=== PATIENT | female | born 1950 | race Caucasian/White ===

== ENCOUNTER 2019-05-09 00:58 | Outpatient (CLI) | payer MEDICARE, BC, SELFPAY ==
--- NOTE | 2019-05-09 09:53 | DI.MRI_ITS ---
SYMPTOMS/DIAGNOSIS: PERIPHERAL POLYNEUROPATHY, G62.9, LUMBAR SPONDYLOSIS, NERVE RADIOFREQUENCY ABLATION THERAPY ON 02/2019, BURNING PAIN RIGHT LOWER EXTREMITY, ? PROGRESSION OF CENTRAL VERSUS FORAMINAL STENOSIS LUMBOSACRAL SPINE MRI: MRI examination of the lumbosacral spine was performed according to the usual protocol. Current examination is compared with most recent MR of 08/02/2016. Peridiscal vertebral signal changes again noted at multiple levels along with multiple fatty rests. Bilateral L5 spondylolysis with associated spondylolisthesis, the spondylolisthesis has increased mildly since the previous examination and now comprises approximately 15% of the vertebral width. There is moderate bilateral neural foraminal narrowing, slightly worse in comparison with the previous examination. There is moderate central canal spinal stenosis, slightly increased since the previous examination. No focal disc herniation. At L4-5, there is moderate to severe central canal spinal stenosis with a moderate disc bulge. No gross interval change from previous examination. At L3-4, there is moderate central canal spinal stenosis and a disc bulge, no gross interval change from the previous examination. At L2-3, there is mild central canal spinal stenosis, no gross interval change from the previous study. At L1-2, there is a moderate disc bulge. No significant change. Conus medullaris appears intact. CONCLUSION: Multilevel central canal spinal stenosis as described above. Interval increase in severity of central canal spinal stenosis at L5-S1 since examination of July 2016. Mild interval increase in bilateral neural foraminal narrowing also noted since the previous examination. No other significant change.
== END 2019-05-09 01:18 ==
PROVIDERS: PCP Specialist/Technologist Athletic Trainer; Visit Provider Internal Medicine
DX: M48.07 Spinal stenosis, lumbosacral region (principal); M43.09 Spondylolysis, multiple sites in spine; M43.16 Spondylolisthesis, lumbar region; G62.9 Polyneuropathy, unspecified; M51.26 Other intervertebral disc displacement, lumbar region
CPT/HCPCS: 72148

== ENCOUNTER 2019-05-23 10:19 | Outpatient (REF) | payer MEDICARE, BC, SELFPAY ==
[2019-05-23 23:03] LABS: Anion Gap 10.5 mmol/L (3-11); BUN 18 mg/dL (7-18); CO2 26.5 mmol/L (21.0-32.0); CREATININE 0.76 mg/dL (0.55-1.02); Calcium 8.7 mg/dL (8.5-10.1); Calculated LDL 181 mg/dL; Chloride 105 mmol/L (98-107); Cholesterol 262 mg/dL (50-200); Glucose 98 mg/dL (70-100); HDL Cholesterol 70 mg/dL (40-60); Magnesium 1.8 mg/dL (1.8-2.4); Potassium 4.8 mmol/L (3.5-5.1); Sodium 142 mmol/L (136-145); Triglyceride 58 mg/dL (30-150); Vitamin B12 668 pg/mL (193-986)
[2019-05-23 23:51] LABS: FREE T4 0.88 ng/dL (0.76-1.46); TSH 2.82 uIU/mL (0.36-3.74)
[2019-05-25 13:12] LABS: Total Protein 6.4 g/dl (6.3-8.2)
== END 2019-05-23 10:39 ==
LOC: NCHCN 10:19
PROVIDERS: PCP Specialist/Technologist Athletic Trainer; Visit Provider Nurse Practitioner Family
DX: E78.5 Hyperlipidemia, unspecified (principal); M48.00 Spinal stenosis, site unspecified
CPT/HCPCS: 80048; 80061; 83721; 82607; 83735; 84165; 84439; 84443

== ENCOUNTER 2019-05-29 00:33 | Outpatient (CLI) | payer MEDICARE, BC, SELFPAY ==
--- NOTE | 2019-05-29 10:57 | DI.RAD_ITS ---
SYMPTOMS/DIAGNOSIS: NECK PAIN, M54.2 CERVICAL SPINE: Odontoid, AP, lateral and bilateral oblique views of the cervical spine were obtained. The odontoid is intact. The lateral masses are well aligned. There is normal alignment of the cervical spine. There is disc space narrowing from C 4 - 5 through C 6 - 7. Endplate osteophytes are also seen through these levels. There degenerative changes of the facets throughout the cervical spine. There is mild narrowing of the neural foramen on the right at C 4 - 5 and 5-6 and left at C 4 - 5 and 5 - 6. No acute fracture or subluxation is seen. The prevertebral soft tissues are unremarkable. IMPRESSION: Moderately severe degenerative changes in the cervical spine.
== END 2019-05-29 00:53 ==
PROVIDERS: PCP Specialist/Technologist Athletic Trainer; Visit Provider Nurse Practitioner Family
DX: M54.2 Cervicalgia (principal); M47.812 Spondylosis without myelopathy or radiculopathy, cervical region; M50.321 Other cervical disc degeneration at C4-C5 level; M50.322 Other cervical disc degeneration at C5-C6 level
CPT/HCPCS: 72050

== ENCOUNTER 2020-03-21 20:57 | Outpatient (REF) | payer MEDICARE, BC, SELFPAY | END 2020-03-21 21:17 | LOC: NCHCN 20:57 | PROVIDERS: PCP Specialist/Technologist Athletic Trainer; Visit Provider Family Medicine | DX: N39.0 Urinary tract infection, site not specified (principal) | CPT/HCPCS: 87077; 87086; 87186 ==

== ENCOUNTER 2020-03-27 18:16 | Outpatient (REF) | payer MEDICARE, BC, SELFPAY | END 2020-03-27 18:36 | LOC: NCHCN 18:16 | PROVIDERS: PCP Specialist/Technologist Athletic Trainer; Visit Provider Family Medicine | DX: N39.0 Urinary tract infection, site not specified (principal) | CPT/HCPCS: 87086 ==

== ENCOUNTER 2020-05-27 11:58 | Outpatient (REF) | payer MEDICARE, BC, SELFPAY ==
--- NOTE | 2020-05-27 12:00 | PAPFT_PTH ---
PATIENT: Sharon Buchanan LOC: [facility] U#:[id number] AGE/SX: 70/F ROOM: RE05/27/[address]: Zenobia Cota : 1950 BED: DIS: 05/27/2020 SPEC #: [id number] RECD: 05/28/20 12:56 STATUS: ORACIO RESumi #: [id number] MARILIA: 05/27/20 12:[address]: Zenobia Cota DEPT: [facility] Cytology RECD BY: Juhi Felix ENTERED: 05/28/20 12:57 SP TYPE: PAPFT OTHR DR: Jerel Santiago Tissues: 1 - CX/ENDOCX FOR PAP SMEARS Procedures: PAP THIN PREP/UVM Screening HPV DNA PROBE Comments: [id number]
[2020-05-27 20:03] LABS: BUN 20 mg/dL (7-18); CREATININE 0.82 mg/dL (0.55-1.02); Calcium 9.1 mg/dL (8.5-10.1); Calculated LDL 155 mg/dL (<100); Chloride 103 mmol/L (98-107); Cholesterol 243 mg/dL (<200); Glucose 102 mg/dL (74-106); HDL Cholesterol 74 mg/dL (40-60); Magnesium 1.7 mg/dL (1.8-2.4); Potassium 4.4 mmol/L (3.5-5.1); Sodium 138 mmol/L (136-145); TSH 1.74 uIU/mL (0.36-3.74); Triglyceride 70 mg/dL (<150)
== END 2020-05-27 12:18 ==
LOC: NCHCN 11:58
PROVIDERS: PCP Specialist/Technologist Athletic Trainer; Visit Provider Nurse Practitioner Family
DX: E78.5 Hyperlipidemia, unspecified (principal); R94.6 Abnormal results of thyroid function studies; Z11.51 Encounter for screening for human papillomavirus (HPV)
CPT/HCPCS: 80048; 80061; 88142; 83735; 84443; 87624

== ENCOUNTER 2020-11-05 18:22 | Outpatient (REF) | payer MEDICARE, BC, SELFPAY ==
[2020-11-05 18:43] LABS: ALT 27 U/L (14-59); AST 19 U/L (15-37); HDL Cholesterol 78 mg/dL (40-60); LDL CHOLESTEROL 98 mg/dL (<100)
[2020-11-05 19:09] LABS: Creatine Kinase 139 U/L (26-192)
== END 2020-11-05 18:42 ==
LOC: NCHCN 18:22
PROVIDERS: PCP Nurse Practitioner Family; Visit Provider Nurse Practitioner Family
DX: E78.5 Hyperlipidemia, unspecified (principal)
CPT/HCPCS: 82550; 83721; 83718; 84450; 84460

== ENCOUNTER 2020-12-30 01:38 | Outpatient (CLI) | payer MEDICARE, BC, SELFPAY ==
--- NOTE | 2020-12-30 | DI.US_ITS ---
EXAM: US RENAL CLINICAL HISTORY: FREQUENT UTI'S,N39.0 TECHNIQUE: Ultrasound performed using standard protocol. COMPARISON: US SOFT TISSUE UPPER/LOWER EXT US {[id number]} from 02/11/2015 FINDINGS: Renal ultrasound was performed according to the usual protocol. The kidneys are normal in size and s hape and there is no evidence of a renal mass, hydronephrosis, or nephrolithiasis. Ureteral jets are noted in the urinary bladder bilaterally. Urinary bladder is unremarkable in appea chung with pre and postvoid volumes 142 cc and 9 cc respectively. IMPRESSION: Negative renal ultrasound. DATA REPOSITORY:
== END 2020-12-30 01:58 ==
PROVIDERS: PCP Nurse Practitioner Family; Visit Provider Urology
DX: N39.0 Urinary tract infection, site not specified (principal); Z87.440 Personal history of urinary (tract) infections
CPT/HCPCS: 76770

== ENCOUNTER 2021-05-13 11:40 | Outpatient (REF) | payer MEDICARE, BC, SELFPAY ==
[2021-05-13 19:58] LABS: HGB 13.2 g/dL (11.2-15.7); MCH 30.9 pg (27.0-33.0); MCV 93.7 fL (80-95); MPV 9.7 fL (8.0-11.0); Platelet Count 304 10^3/uL (130-400); RBC 4.27 10^6/uL (3.93-5.22); RDW-SD 41.8 fL; WBC 8.41 10^3/uL (4.4-10.8)
[2021-05-13 20:14] LABS: Hemoglobin A1C 5.3 % (<5.7)
[2021-05-13 20:31] LABS: Anion Gap 8.9 mmol/L (3-11); BUN 25 mg/dL (7-18); CO2 27.1 mmol/L (21.0-32.0); CREATININE 0.8 mg/dL (0.55-1.02); Calcium 9.1 mg/dL (8.5-10.1); Chloride 103 mmol/L (98-107); Glucose 102 mg/dL (74-106); Magnesium 1.9 mg/dL (1.8-2.4); Potassium 4.4 mmol/L (3.5-5.1); Sodium 139 mmol/L (136-145); TSH 1.96 uIU/mL (0.36-3.74)
== END 2021-05-13 11:41 | disposition home or self-care (01) ==
LOC: NCHCN 11:40
PROVIDERS: PCP Nurse Practitioner Family; Visit Provider Nurse Practitioner Family
DX: R94.6 Abnormal results of thyroid function studies (principal); R55 Syncope and collapse; F41.8 Other specified anxiety disorders; M79.672 Pain in left foot; M25.512 Pain in left shoulder
CPT/HCPCS: 80048; 85027; 83036; 83735; 84439; 84443

== ENCOUNTER 2021-05-18 11:33 | Outpatient (CLI) | payer MEDICARE, BC, SELFPAY ==
--- NOTE | 2021-06-18 14:10 | W.CARDEVENT ---
Date of service: 06/18/21 Time of Service: 14:10 Cardiac Event Recorder Referring Provider:: Ruben Indications:: A Cardiac Event Note: There is a 30-day monitor order for indication of syncope. ?The patient was in normal sinus rhythm for the majority the recording with an average heart rate of 57 bpm. ?There are no episodes of atrial fibrillation, no pauses greater than 3 seconds noted high degree heart block. ?There were no serious or critical events recorded. ?There were 4 patient triggered events associated with sinus bradycardia.
== END 2021-05-18 11:34 | disposition home or self-care (01) ==
PROVIDERS: PCP Nurse Practitioner Family; Visit Provider Nurse Practitioner Family
DX: R55 Syncope and collapse (principal)
CPT/HCPCS: 93270

== ENCOUNTER 2021-06-03 02:07 | Outpatient (CLI) | payer MEDICARE, BC, SELFPAY ==
--- NOTE | 2021-06-03 14:57 | DI.US_ITS ---
APPROVED REPORT EXAM: Comprehensive 2D, Doppler, and color-flow Echocardiogram Patient Location: Out-Patient Piggyback Clerk: Deedee Bean RDCS (AE) Indications: Syncope Other Information Study Quality: Adequate Conclusion Left Ventricle : The left ventricle is normal size. The left ventricular systolic function is normal. The left ventricular ejection fraction is within the normal range. There is normal left ventricular wall thickness. There is normal LV segmental wall motion. Diastolic function is indeterminate. LVEF i s 57%. Right Ventricle : The right ventricle is normal size. The right ventricular systolic function is norm al. The RVSP is 20.1mmHg. Atria : The left atrium size is normal. The right atrium size is normal. Mitral Valve : Mild mitral annular calcification. Mild mitral regurgitation. No evidence of mitral va lve stenosis. Great Vessels : The aortic root is normal in size. The ascending aorta is moderately dilated. Aortic arch is normal in caliber. IVC is normal in size and collapses >50% with inspiration. Please see remainder of study for further details. Wall motion Left Ventricle The left ventricle is normal size. The left ventricular systolic function is normal. The left ventric ular ejection fraction is within the normal range. There is normal left ventricular wall thickness. T here is normal LV segmental wall motion. Diastolic function is indeterminate. There is no ventricular septal defect visualized. LVEF is 57%. Right Ventricle The right ventricle is normal size. The right ventricular systolic function is normal. The RVSP is 20 .1mmHg. Atria The left atrium size is normal. The right atrium size is normal. The interatrial septum is intact wit h no evidence for an atrial septal defect. Aortic Valve The aortic valve is normal in structure. Aortic valve is trileaflet. There is no aortic valvular sten osis. No aortic regurgitation is present. Mitral Valve Mild mitral annular calcification. No evidence of mitral valve stenosis. Mild mitral regurgitation. Tricuspid Valve The tricuspid valve is normal in structure. There is no tricuspid valve stenosis. Trace to mild tricu spid regurgitation. Pulmonic Valve The pulmonary valve is normal in structure. There is no pulmonic valvular stenosis. Trace pulmonic re gurgitation. Great Vessels The aortic root is normal in size. The ascending aorta is moderately dilated. Aortic arch is normal i n caliber. IVC is normal in size and collapses >50% with inspiration. Pericardium There is no pericardial effusion. 2D Dimensions IVSD d PLAX 0.96 cm F: 0.6-1.0 LV Vol A2C d MOD 101.7 mL LVPW d PLAX 1.03 cm F: 0.6 - 1.0 LV Vol A4C d MOD 105.3 mL LVID d PLAX 4.11 cm F: 3.8 - 5.2 LA vol/ BSA A2C s A-L 31.0 mL/m2 LVDs 2.95 cm F: 2.2 - 3.5 LA vol/ BSA A4C s A-L 29.2 mL/m2 Ao Root d 2.71 cm F: 2.7 - 3.3 LA Vol/ BSA Biplane s A-L 31.0 mL/m2 RA Area A4C 14.75 cm2 LA Area A4C s MOD 18.88 cm2 RA Vol/ BSA A4C s A-L 22.0 mL/m2 LA Area A2C s MOD 18.92 cm2 Ao Asc Diam d 3.81 cm F: 2.3 - 3.1 LV EF A4C MOD 57.2 % LV EF Teichholz 54.5 % LV EF A2C MOD 56.8 % LVEF (Miner's) 57.03 % F: 54 - 74 LV EF Biplane MOD 57.0 % LV Volume 80.34 mL F: 46 - 106 SV 59.28 mL LV Volume Index 43.90 mL/m2 F: 29 - 61 SV Index 32.35 mL/m2 LV Vol Biplane MOD 103.9 mL FS 27.90 % M-Mode TAPSE 2.17 cm (M/F) >1.7 LV Diastology MV E' medial 0.051 (>0.07 m/s) E/A Ratio 1.0 LV E/e MED 14.45 (<14) MV E Vmax 0.74 (0.4-1.3 m/s) MV E' lateral 0.075 (>0.1 m/s) MV A Vmax 0.75 (0.4-1.3 m/s) LV E/e LAT 9.90 (<14) MV E/A Ratio 0.96 MV E/E' medial 14.49 MV E/E' lateral 9.92 Aortic Valve LVOT Area 3.40 cm2 AoV Area Vmax 2.32 cm2 LVOT Vmax 0.92 m/s AoV Area/ BSA (Vmax) 1.26 cm2/m2 LVOT Mean Carlos Alberto. 0.62 m/s JIMY Mean Carlos Alberto. 2.42 cm2 LVOT Peak Grad 3.4 mmHg JIMY Mean Carlos Alberto. Index 1.32 cm2/m2 LVOT Mean Grad 1.7 mmHg LVOT VTI 0.216 m LVOT Diam s 2.05 cm AoV Vmax 1.35 m/s Velocity Ratio 0.68 AoV Mean Carlos Alberto. 0.86 m/s AoV Peak Grad 7.3 mmHg LVOT SV 73.30 mL AoV Mean Grad 3.5 mmHg AoV VTI 0.265 m AoV Area VTI 2.76 cm2 AoV Area/ BSA (VTI) 1.51 cm/m2 Mitral Valve MV DT 160 (160-240 msec) MR Vmax 4.28 m/s MV PHT 46 msec MR VTI 1.719 m MV Area PHT 4.76 cm2 MR Peak Grad 73.2 mmHg MV VTI 0.296 m MR Mean Grad 56.5 mmHg MV VTI Annulus 0.292 m MR PISA Radius 0.55 cm MV Area VTI 2.45 (4.0-6.0 cm2) MR EROA 0.15 cm2 MR Aliasing Velocity 0.35 m/s MR PISA 1.88 cm2 Pulmonary Valve PV Vmax 0.85 (0.5-1.5 m/s) RVOT Peak Gr. 1.10 mmHg PV Peak Grad 2.9 mmHg RVOT Mean Gr. 0.55 mmHg PV Mean Grad 1.5 mmHg RVOT VTI 0.136 m PV VTI 0.209 m RVOT Vmax 0.52 m/s Tricuspid Valve TR Peak Grad 17.1 mmHg TR Vmax 2.07 m/s RA Pressure 3.00 mmHg RVSP (TR) 20.1 mmHg
== END 2021-06-03 02:27 ==
PROVIDERS: PCP Nurse Practitioner Family; Visit Provider Nurse Practitioner Family
DX: R55 Syncope and collapse (principal); I34.0 Nonrheumatic mitral (valve) insufficiency; I77.810 Thoracic aortic ectasia
CPT/HCPCS: 93306

== ENCOUNTER 2021-06-18 14:10 | Outpatient (CLI) | payer MEDICARE, BC, SELFPAY | END 2021-06-18 14:11 | LOC: CARDO 06-19 09:16 | PROVIDERS: PCP Nurse Practitioner Family; Referring Provider Nurse Practitioner Family; Visit Provider Internal Medicine Cardiovascular Disease | DX: R55 Syncope and collapse (principal); R00.2 Palpitations | CPT/HCPCS: 93272 ==

== ENCOUNTER 2021-07-17 08:49 | Outpatient (CLI) | payer MEDICARE, BC, SELFPAY ==
--- NOTE | 2021-07-17 08:45 | RT.EKG_ITS ---
APPROVED REPORT Exam: Resting ECG Reason for Exam: bradycardia Patient Location: O HR:54 bpm ECG Measurements Heart Rate 54 AXIS MN 294 P 32 QRSd 82 QRS 13 QT 434 T 38 QTc 412 Conclusion Sinus rhythm...normal P axis, V-rate 50- 99 First Degree AV Block
== END 2021-07-17 08:50 | disposition home or self-care (01) ==
LOC: DI.CARD 08:58
PROVIDERS: PCP Nurse Practitioner Family; Referring Provider Nurse Practitioner Family; Visit Provider Internal Medicine Cardiovascular Disease
DX: R00.1 Bradycardia, unspecified (principal)
CPT/HCPCS: 93010

== ENCOUNTER → 2021-07-17 08:49 | Outpatient (BNVA) | payer MEDICARE, BC, SELFPAY | PROVIDERS: PCP Nurse Practitioner Family; Referring Provider Nurse Practitioner Family; Visit Provider Internal Medicine Cardiovascular Disease | DX: R00.1 Bradycardia, unspecified (principal) | CPT/HCPCS: 93005; 99203 ==

== ENCOUNTER 2021-08-04 01:10 | Outpatient (CLI) | payer MEDICARE, BC, SELFPAY ==
--- NOTE | 2021-08-04 14:45 | DI.RAD_ITS ---
Exam(s) XR SHOULDER LT COMPLETE 2+V XR HUMERUS LT EXAM: XR SHOULDER LT COMPLETE 2+V and XR humerus LT CLINICAL HISTORY: LT SHOULDER PAIN, M25.512,H/O TRAUMA,? PLATE AND SCREWS INTACT,COMPARE TO. TECHNIQUE: 2D digital imaging was performed of the left shoulder and humerus. Seven images were obt ained. AP, Grashey, Y-view and axillary views of the shoulder and AP and lateral views of the left h umerus were obtained. COMPARISON: CR XR HUMERUS LT from 08/04/2021 CR XR HUMERUS LT from 08/04/2021 FINDINGS: BONES: No acute fracture is present. No bony destructive lesion is seen. There is an old healed left proximal humeral fracture with sideplate and screws present. Well corticated osseous densities are s een around the glenohumeral joint consistent with old injury. There are old healed left rib fracture s. The distal humerus is unremarkable. JOINTS: No dislocation present. Moderately severe degenerative changes of the left glenohumeral joint are noted with joint space narrowing, subchondral sclerosis and periarticular spurring. SOFT TISSUE: Normal. IMPRESSION: 1. No acute abnormality. 2. Posttraumatic and postsurgical changes in the shoulder. 3. Moderately severe degenerative changes of the glenohumeral joint. DATA REPOSITORY: RADIATION DOSE DELIVERED:
== END 2021-08-04 01:30 ==
PROVIDERS: PCP Nurse Practitioner Family; Visit Provider Nurse Practitioner Family
DX: M25.512 Pain in left shoulder (principal); M19.012 Primary osteoarthritis, left shoulder
CPT/HCPCS: 73030; 73060

== ENCOUNTER 2021-11-23 13:44 | Outpatient (REF) | payer MEDICARE, BC, SELFPAY ==
[2021-11-23 13:02] LABS: ALT 30 U/L (14-59); AST 24 U/L (15-37); Calculated LDL 103 mg/dL (<100); Cholesterol 204 mg/dL (<200); HDL Cholesterol 91 mg/dL (40-60); Triglyceride 53 mg/dL (<150)
[2021-11-23 13:16] LABS: Creatine Kinase 118 U/L (26-192)
== END 2021-11-23 13:45 | disposition home or self-care (01) ==
LOC: NCHCN 13:44
PROVIDERS: PCP Nurse Practitioner Family; Visit Provider Nurse Practitioner Family
DX: E78.5 Hyperlipidemia, unspecified (principal)
CPT/HCPCS: 80061; 82550; 84450; 84460

== ENCOUNTER 2022-02-04 10:02 | Outpatient (CLI) | payer MEDICARE, BC, SELFPAY ==
--- NOTE | 2022-02-04 06:00 | DI.RAD_ITS ---
Exam(s) XR PAIN CLINIC LUMBAR SP 2V EXAM: XR PAIN CLINIC LUMBAR SP 2V CLINICAL HISTORY: Dx: Lumbar Spondylosis TECHNIQUE: 2D and realtime digital imaging was performed. CONTRAST MATERIAL: Refer to procedure report. COMPARISON: No exams were available for comparison FINDINGS: Fluoroscopy was provided for Dr. Jiang during the performance of a lumbar medial branch block. Doyle schofield refer to the procedure report for complete details. Ka,r=8.33 mGy IMPRESSION:
[2022-02-04 10:14] VITALS: BP 124/66; PULSE 68; RESP 18; TEMP 36.6; O2SAT 97
--- NOTE | 2022-02-04 10:55 | PDOC.PAIN_ITS ---
Pain Clinic Procedure Note Procedure Note Procedure Note: Lumbar/Sacral Medial Branch Blocks - Confirmatory Sharon Buchanan has been referred to the [facility] for lumbar/sacral medial branch blocks. COMMENTS: I previously evaluated her in the clinic. Her pre-procedure pain VAS as 7/10. Dx: Lumbosacral spondylosis without myelopathy Patient was interviewed and the medical record reviewed. There were no medical, pharmacologic, radiographic or other structural contraindications to attempting fluoroscopically guided local anesthetic lumbar/sacral medial branch blocks. Risks and expected side effects as well as potential benefit of the procedure were reviewed and voiced concerns addressed. The printed consent form was signed and witnessed. Standard time-out procedure was performed. Patient was placed in the prone position on the fluoroscopy table and automated blood pressure cuff and pulse oximeter applied. The skin entry points for approaching the anatomic target points of the segmental medial branches of bilateral l3-L5DR were identified with anfluoroscopy and marked. Following thorough Chlorhexadine preparation of the skin and draping and 1% lidocaine infiltration of the skin entry points and subcutaneous tissues, a 25 gauge 3.5 spinal needle was placed under fluoroscopic guidance down on to the target point for each respective segmental medial branch.Position was confirmed in A/P, oblique and lateral views with 0.25ml of omnipaque 240. At this point I injected 0.5ml of 0.5% Bupivacaine at each segmental sensory nerve. Vital signs were stable throughout the procedure and were as recorded in the docflowsheet by the nursing staff. Follow up plans and appointments were discussed and was instructed to keep careful note of how the usual pain was modified by these injections. Specifically was asked to keep a pain diary for the next 24 hours using a numeric pain scale of 0-10 and report these results at the follow-up visit. Post procedure instruction was given as documented in the nursing documentation and having met discharge criteria. Patient was discharged from the [facility]. Based on the medial branches blocked today, if the patient has adequate relief and we are able to proceed to radiofrequency ablation, the treatment should result in the denervation of the bilateral L4-L5 and L5-S1 FACET JOINTS. We would expect to denervate a total of 4 facets during the radiofrequency ablation. COMMENTS: Post-procedure pain VAS = 5/10. Justus Jiang DO, MPH [facility]Pain Management [facility] CC: Zenobia Cota
[2022-02-04] MEDS: Omnipaque 240 MG/ML 50 ML BTL IJ (11:05)
[2022-02-04] MEDS: Bupivacaine 0.5% Pres-Free 10 ML VIAL IJ (11:05)
[2022-02-04 11:06] VITALS: BP 129/72; PULSE 67; RESP 16; O2SAT 95
== END 2022-02-04 10:03 | disposition home or self-care (01) ==
LOC: PC 10:02
PROVIDERS: PCP Nurse Practitioner Family; Visit Provider Preventive Medicine Occupational Medicine
DX: M47.817 Spondylosis without myelopathy or radiculopathy, lumbosacral region (principal)
CPT/HCPCS: 64493; 64494; 72100; Q9967

== ENCOUNTER 2022-03-04 07:59 | Outpatient (CLI) | payer MEDICARE, BC, SELFPAY ==
--- NOTE | 2022-03-04 06:00 | DI.RAD_ITS ---
Exam(s) XR PAIN CLINIC LUMBAR SP 2V EXAM: XR PAIN CLINIC LUMBAR SP 2V CLINICAL HISTORY: lumbar spondylosis TECHNIQUE: 2D and realtime digital imaging was performed. COMPARISON: No exams were available for comparison FINDINGS: C-arm fluoroscopy was utilized by Dr. Jiang during reported radiofrequency ablation. Hard copy shows needle placement bilaterally at what appear to be the L3-4, L4-5, and L5-S1 levels. IMPRESSION: RADIATION DOSE DELIVERED: anibal Rodriguez=17.06 mGy
[2022-03-04 08:10] VITALS: BP 114/63; PULSE 68; RESP 20; TEMP 36.4; O2SAT 97
[2022-03-04] MEDS: fentaNYL 100 MCG/2 ML VIAL IVP ×2 (08:45→08:55)
[2022-03-04] MEDS: Midazolam 2 MG/2 ML VIAL IVP (08:46)
[2022-03-04 09:18] VITALS: BP 119/69; PULSE 60; RESP 18; O2SAT 96
--- NOTE | 2022-03-04 09:23 | PDOC.PAIN_ITS ---
Pain Clinic Procedure Note Procedure Note Procedure Note: Bilateral Lumbar Radiofrequency with Coolief Machine PROCEDURE NOTE Date of Service: March 04, 2022 Patient: Sharon Buchanan Provider: Justus Jiang DO, MPH Pre Operative Diagnosis: Lumbosacral Spondylosis without Myelopathy Post Operative Diagnosis: Same Pre procedure pain; VAS= 7/10 PROCEDURE: Radiofrequency Ablation of medial branches - Bilateral L3 L4 L5 and lateral branches of bilateral S1. Sharon Buchanan was brought into the fluoroscopy suite and positioned into the prone position on the fluoroscopy table and allowed to adjust to a position of comfort. A grounding pad was placed on the right thigh. The lumbar region was widely prepped with a chloraprep solution, allowed to air dry and draped in standard sterile surgical fashion. Local anesthesia was provided by 5 mL of 2% Lidocaine delivered with a 25g needle. A 17g 100 mm radiofrequency introducer needle was placed to the planned anatomic targets guided with intermittent fluoroscopy with a perpendicular approach to terminally place at the junction of the superior articular process and the transverse process of the bilateral L4 L5, the base of the sacral ala on the bilateral for the L5 medial branch nerve and the area between base of the sacral ala to the S1 foramen bilaterally. The stylets were removed and radiofrequency probes with a 4mm active tip were then inserted. Needle tip position of the probes was verified in the AP, oblique, and lateral views. At each site, the medial branch nerve was stimulated at 2 Hz to a maximum 1-2 volts determined to finalize safe needle and electrode placement. The patient was awake and responsive during this portion of the procedure. Each target was anesthetized with 1-2 mL of 2% Lidocaine for anesthesia for lesioning and then each target was lesioned at 80 degrees Celsius for 2 minutes and 30 seconds. Tissue imped ences were noted to be between 250 and 500 Ohms. Electrodes and needles were then removed and bandages placed over the needle placement sites, the patient then returned to the supine position on a stretcher and transported to the recovery room without hemodynamic, neurologic, or allergic reactions. Fluoroscopic images were printed for hard copy recording and digitally archived. POST PROCEDURE EVALUATION: IMPRESSION: 1. Summary of procedure. Medication given is documented in the MAR. 2. The patient will be contacted in 1-3 weeks 3. Estimated Blood Loss: <5 mls 4. Fluoroscopy time: Documented in the EMR. Follow up plans and appointments were discussed with the Sharon . Post procedure instruction was given as documented in nursing documentation and having met discharge criteria, Sharon was discharged from the [facility]. COMMENTS: No apparent complications. Post-procedure pain: VAS= 5/10. F/U with our office as needed. I personally performed this entire procedure. Justus Jiang DO, MPH Attending Physician Pain Management
[2022-03-04] MEDS: Bupivacaine 0.5% Pres-Free 10 ML VIAL IJ (09:36)
[2022-03-04] MEDS: methylPREDNISolone ACETATE 40 MG/ML VIAL IJ (09:37)
[2022-03-04] MEDS: Lidocaine 2% Pres-Free 5 ML VIAL IJ (09:40)
== END 2022-03-04 08:00 | disposition home or self-care (01) ==
LOC: PC 08:00
PROVIDERS: PCP Nurse Practitioner Family; Visit Provider Preventive Medicine Occupational Medicine
DX: M47.817 Spondylosis without myelopathy or radiculopathy, lumbosacral region (principal)
CPT/HCPCS: 64635; 64636; 72100; J1030; J2250; J3010

== ENCOUNTER 2022-06-11 15:40 | Emergency (ER) | payer MEDICARE, BC, SELFPAY ==
[2022-06-11 15:44] VITALS: BP 120/103; PULSE 59; RESP 18; TEMP 36.4; O2SAT 98
--- NOTE | 2022-06-11 15:45 | DI.RAD_ITS ---
Exam(s) XR HAND RT COMPLETE EXAM: XR HAND RT COMPLETE CLINICAL HISTORY: wound from bolt, base of thumb. TECHNIQUE: 2D digital imaging was performed. Three views. COMPARISON: No exams were available for comparison FINDINGS: BONES: No acute fracture is present. No bony destructive lesion is seen. JOINTS: No dislocation present. Degenerative changes are noted throughout, greatest at the 1st carp al metacarpal joint. SOFT TISSUE: Normal. No radiopaque foreign body. IMPRESSION: Degenerative changes. No acute abnormality. DATA REPOSITORY: RADIATION DOSE DELIVERED:
--- NOTE | 2022-06-11 15:54 | W.ED.GENAD ---
Discharge Plan Disposition Patient Disposition: HOME Condition: Stable Discharge Details Clinical Impression: Open wound of right hand Primary Care Provider: Zenobia Cota ED Provider: Gold Swanson Home Meds and New Rx's Prescriptions: New cephalexin 500 mg capsule 500 mg PO QID 10 Days Qty: 40 0RF Continued coenzyme Q10 [CoQ-10] 100 mg capsule 100 mg PO DAILY Premarin 0.625 mg/gram cream 0.3125 mg vaginal .weekly Rx Instructions: off 5 days; repeat cycle tizanidine 4 mg tablet 4 mg PO Q8H PRN calcium carbonate [Calcium 600] 600 mg calcium (1,500 mg) tablet 600 mg PO DAILY folic acid 0.4 MG tablet 0.4 mg PO DAILY cyanocobalamin (vitamin B-12) 2,500 MCG tablet 2,500 mcg PO DAILY estradiol [Estrace] 42.5 GM cream 1 gm VG 2x/wk Qty: 1 0RF atorvastatin 10 mg tablet 10 mg PO DAILY levothyroxine 25 mcg tablet 50 mcg PO DAILY ascorbate calcium (vitamin C) 500 mg tablet 1.5 g PO DAILY meloxicam 15 mg tablet 15 mg PO DAILY magnesium 250 mg tablet 500 mg PO DAILY trazodone 100 mg tablet 150 mg PO HS Label Comments: 07/08/15- pt states she is allowed to take up to 150mg at hs if necessary. HM cholecalciferol (vitamin D3) 1,000 UNIT capsule 2 tab PO DAILY multivitamin 1 EACH capsule 1 ea PO DAILY pregabalin 50 mg capsule 50 mg PO DAILY Label Comments: TAKE 1 CAPSULE BY MOUTH TWICE A DAY. tramadol 50 mg Tablet 50 mg PO BID PRN Discharge Instructions Instructions: Abrasion (ED) Additional Instructions: Keep the wound clean and dry, change antibiotic dressing daily. Rest, elevate, cool and/or warm compresses every 2 hours for 20 minutes. Please watch for new or worsening symptoms and return to the ER for any concerns. No evidence of infection now but I have provided you a prescription of Keflex in the case she developed warmth, redness, signs of infections over the next 24-48 hours you may fill over the weekend. Otherwise please contact your primary care provider on Tuesday to discuss your ER visit and need for outpatient reevaluation. Medical Decision Making 72-year-old female [id number] injured her right hand on a metal bolt yesterday evening. Was seen at the urgent care and given a updated tetanus booster. Sent to the ER for full evaluation. Clinically she appears well, nontoxic, neurologically intact. Plan is to obtain x-ray to rule out bony involvement or foreign body. Will thoroughly clean and appropriately dress Wound was thoroughly cleaned and dressed with antibiotic ointment. X-ray does not reveal bony abnormality or foreign body, there are degenerative changes present. Patient reports previous severe hand injury requiring surgery and she is concerned of infection. No signs of infection now. Recommend topical antibiotic ointment and I will provide a prescription for Keflex that she can fill over the next 24 to 48 hours if symptoms were to worsen. Standard discharge and return precautions were provided. Patient understands, is agreeable to this plan, and has no additional questions or concerns upon discharge. This documentation was generated using Youtopia[employer] system, please disregard any oddities of phrase or misspellings. Medical Records Medical records reviewed: Yes I reviewed the patient's medical records. Imaging Data Radiologic Study: Attestation: I personally reviewed and interpreted this imaging study as follows: Imaging: X-Ray Radiologist's impression: Exam(s) XR HAND RT COMPLETE EXAM: XR HAND RT COMPLETE CLINICAL HISTORY: wound from bolt, base of thumb. TECHNIQUE: 2D digital imaging was performed. Three views. COMPARISON: No exams were available for comparison FINDINGS: BONES: No acute fracture is present. No bony destructive lesion is seen. JOINTS: No dislocation present. Degenerative changes are noted throughout, greatest at the 1st carpal metacarpal joint. SOFT TISSUE: Normal. No radiopaque foreign body. IMPRESSION: Degenerative changes. No acute abnormality. HPI General Mode of arrival: ambulatory. Date/Time Provider Initiated Documentation: 06/11/22 15:49. Limitations to Documentation: no limitations. Information obtained by: patient. History of Present Illness 72 year old F presents to the emergency department with the chief complaint of R hand wound, described as moderate, with intensity rated at 4. Quality is described as aching, and is localized to the right and upper extremity. Patient reports no radiation. Patient started experiencing this day(s) (1) and it has been constant. Immobilization improves symptom(s), Movement worsens symptoms . Patient notes no other symptoms.. Patient did receive the following treatments prior to arrival, none Related Data Home Medications Medication Instructions Recorded Confirmed cholecalciferol (vitamin D3) 25 2 tab PO DAILY 02/26/15 06/11/22 mcg (1,000 unit) capsule multivitamin 1 ea PO DAILY 07/28/16 03/04/22 cyanocobalamin (vitamin B-12) 2,500 mcg PO DAILY 09/02/17 03/04/22 2,500 mcg tablet folic acid 400 mcg tablet 0.4 mg PO DAILY 09/02/17 03/04/22 estradiol 0.01% (0.1 mg/gram) 1 gm vaginal 2x/wk #1 tube 09/09/17 03/04/22 vaginal cream (Estrace) ascorbate calcium (vitamin C) 500 1.5 g PO DAILY 06/26/21 03/04/22 mg tablet atorvastatin 10 mg tablet 10 mg PO DAILY 06/26/21 06/11/22 levothyroxine 25 mcg tablet 50 mcg PO DAILY 06/26/21 06/11/22 magnesium 250 mg tablet 500 mg PO DAILY 06/26/21 06/11/22 meloxicam 15 mg tablet 15 mg PO DAILY 06/26/21 03/04/22 coenzyme Q10 100 mg capsule 100 mg PO DAILY 07/17/21 03/04/22 (CoQ-10) calcium carbonate 600 mg calcium 600 mg PO DAILY 11/16/21 06/11/22 (1,500 mg) tablet (Calcium) conjugated estrogens 0.625 mg/gram 0.3125 mg vaginal .weekly 11/16/21 06/11/22 vaginal cream (Premarin) tizanidine 4 mg tablet 4 mg PO Q8H PRN 11/16/21 06/11/22 trazodone 100 mg tablet 150 mg PO HS 11/16/21 06/11/22 tramadol 50 mg tablet 50 mg PO BID PRN 02/04/22 06/11/22 cephalexin 500 mg capsule 500 mg PO QID 10 days #40 caps 06/11/22 pregabalin 50 mg capsule 50 mg PO DAILY 06/11/22 06/11/22 Previous Rx's Medication Instructions Recorded estradiol 0.01% (0.1 mg/gram) 1 gm vaginal 2x/wk #1 tube 09/09/17 vaginal cream (Estrace) cephalexin 500 mg capsule 500 mg PO QID 10 days #40 caps 06/11/22 Allergies Allergy/AdvReac Type Severity Reaction Status Date / Time gabapentin Allergy Intermediate rash Verified 06/11/22 15:48 hydrocodone bitartrate Allergy Intermediate Hives Verified 06/11/22 15:48 [From Vicodin] tramadol Allergy Intermediate Hives Verified 07/17/21 09:10 General Stated Complaint: Laceration KARIME: 4 Review of Systems Constitutional Constitutional: Denies fever(s) Musculoskeletal Musculoskeletal: Reports arthralgias, Denies numbness, Reports stiffness and Denies tingling Integumentary/Breasts Skin/Breast: Denies erythema Neurologic Neurologic: Denies numbness and Denies tingling PFSH All Active Problems (Updated 06/11/22 @ 17:21 by LOLI Solomon) Open wound of right hand (Acute) Lumbosacral spondylosis without myelopathy (Acute) DJD (degenerative joint disease) (Chronic) severe back issues RH Hyperlipidemia, unspecified (Acute) Bipolar disorder, unspecified (Acute) Obsessive-compulsive disorder, unspecified (Acute) PTSD (post-traumatic stress disorder) (Acute) Osteopenia (Acute) Syncope and collapse (Acute) Bradycardia (Acute) Lumbar stenosis (Acute) Lumbosacral spondylosis without myelopathy (Acute) Neurogenic claudication due to lumbar spinal stenosis (Acute) Medical History Abnormal thyroid stimulating hormone (TSH) level 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) Basal cell carcinoma Bilateral calf pain Bitten or stung by nonvenomous insect and other nonvenomous arthropods, initial encounter Chronic low back pain Constipation Diverticulitis Hemorrhoids Left foot pain Left shoulder pain Lumbar radiculopathy Neck pain Paresthesia of bilateral legs Sacral foraminal stenosis Situational anxiety Sleep disturbance Spinal stenosis Sprain and strain of other specified sites of shoulder and upper arm Toe pain Tremor Ulnar neuropathy Urinary frequency Vaginitis Surgical History Fracture, Open Treatment plate L arm R ankle fx R wrist fracture Tendon Transplant or Transfer R hand Social History Smoking/Tobacco Use Status: Never Smoking risk assessment performed?: Yes Alcohol Intake: current Alcohol Intake frequency: holidays/special occasions only Drug use: Occasionally Substance use type: marijuana Do you feel safe at home: Yes Do you feel safe in your relationship?: Yes Exam Const General: cooperative, healthy appearing, comfortable and no acute distress Orientation: alert and awake [facility] Head: normal to inspection, normocephalic and atraumatic Eyes Conjunctivae: conjunctivae normal Neck Neck: normal visual inspection, trachea midline and supple Resp Effort & Inspection: normal respiratory effort and able to speak in complete sentences Cardio Rate: regular rate Rhythm: regular rhythm Skin General skin exam: no rashes or lesions noted Neuro General: patient alert, patient awake, moves all extremities and no focal motor deficits Cognition: normal cognition Speech: speech normal Gait: normal gait Motor: muscle tone normal throughout Sensory Exam: no sensory deficits noted Extrem General: full ROM and capillary refill normal Hand/finger images: 1. Superficial abrasion-shallow looking wound. No bleeding or foreign body. Mild discomfort to palpation. No deformity, erythema or warmth. There is no drainage. Neuro, vascular, tendon intact. Psych Appearance: grossly normal Mental Status: mental status grossly normal Course Vital Signs Vital signs: Vital Signs Temperature 36.4 C L 06/11/22 15:44 Pulse 59 L 06/11/22 15:44 Respiratory Rate 18 06/11/22 15:44 Blood Pressure 120/103 H 06/11/22 15:44 Pulse Oximetry 98 06/11/22 15:44 Temperature 36.4 C L 06/11/22 15:44 Temperature Source Temporal Artery Scan 06/11/22 15:44 Pulse 59 L 06/11/22 15:44 Respiratory Rate 18 06/11/22 15:44 Respiratory Effort Non-Labored 06/11/22 15:49 Blood Pressure 120/103 H 06/11/22 15:44 Blood Pressure Position Sitting 06/11/22 15:44 Pulse Oximetry 98 06/11/22 15:44 Oxygen Delivery Method Room Air 06/11/22 15:44 Oxygen Flow Rate 0 06/11/22 15:44 PAWSS Have you Been Recently Intoxicated or Drunk Within the Last 30 days?: No Have you Ever Experienced Previous Episodes of Alcohol Withdrawal?: No Have you ever Experienced Withdrawal Seizures?: No Have you ever Experienced Delirium Tremens(DT)s?: No Have you ever undergone Alcohol Rehabilitation Treatment (i.e, inpt ot outpatient treatment programs)?: No Have you ever Experienced Blackouts?: No Have you ever Combined Alcohol with other Downers within the last 90 days?: No Have you ever Combined Alcohol with any other Substance of Abuse during the last 90 days?: No Positive Blood Alcohol level on Presentation? [PCS.BAL]: No Evidence of Increased Autonomic Activity (i.e. HR>120, tremor, sweating, agitation, nausea)?: No Result: 0
== END 2022-06-11 18:15 | disposition home or self-care (01) ==
PROVIDERS: Emergency Provider Physician Assistant; PCP Nurse Practitioner Family
DX: S61.401A Unspecified open wound of right hand, initial encounter (principal); W22.8XXA Striking against or struck by other objects, initial encounter
CPT/HCPCS: 99283; 73130; 99284

== ENCOUNTER 2022-07-26 13:13 | Outpatient (REF) | payer MEDICARE, BC, SELFPAY ==
[2022-07-26 17:02] LABS: ALT 29 U/L (14-59); AST 26 U/L (15-37); Creatine Kinase 105 U/L (26-192); HDL Cholesterol 89 mg/dL (40-60); LDL CHOLESTEROL 102 mg/dL (<100); TSH 1.82 uIU/mL (0.36-3.74)
[2022-07-26 17:19] LABS: FREE T4 0.99 ng/dL (0.76-1.46)
[2022-07-30 16:29] LABS: O-desmethyltramadol 10603 ng/mL (Cutoff:25); Tramadol 11967 ng/mL (Cutoff:25)
== END 2022-07-26 13:14 | disposition home or self-care (01) ==
LOC: NCHCN 13:13
PROVIDERS: PCP Nurse Practitioner Family; Visit Provider Nurse Practitioner Family
DX: E78.5 Hyperlipidemia, unspecified (principal); R94.6 Abnormal results of thyroid function studies; M48.061 Spinal stenosis, lumbar region without neurogenic claudication
CPT/HCPCS: 80373; 82550; 83721; 83718; 84439; 84443; 84450; 84460

== ENCOUNTER → 2022-08-04 01:25 | Outpatient (CLI) | payer MEDICARE, BC, SELFPAY ==
--- NOTE | 2022-08-04 10:00 | DI.RAD_ITS ---
Exam(s) XR CHEST 2V PA LATERAL EXAM: XR CHEST 2V PA LATERAL CLINICAL HISTORY: SOB, R06.02; COUGH AT NIGHTTIME TECHNIQUE: 2D digital imaging was performed. COMPARISON: No exams were available for comparison FINDINGS: HEART: Normal size. Aorta: Mildly tortuous. Not dilated. PULMONARY VASCULATURE: Normal. LUNGS: Clear. PLEURAL SPACE: No pleural effusion or pneumothorax. BONE:Unremarkable for age. Hardware left proximal humerus. IMPRESSION: No acute abnormality. DATA REPOSITORY: RADIATION DOSE DELIVERED:
--- NOTE | 2022-08-04 10:00 | DI.RAD_ITS ---
Exam(s) XR HIP PELVIS ADULT BL EXAM: XR HIP PELVIS ADULT BL CLINICAL HISTORY: LT HIP JT PAIN, M25.552. TECHNIQUE: 2D digital imaging was performed. Five views. COMPARISON: No exams were available for comparison FINDINGS: BONES: No acute fracture is present. No bony destructive lesion is seen. Mild enthesophytes from the iliac crests. Enthesophytes are also noted at the iliac wings. There is severe narrowing of the L4-5 and L5-S1 disc spaces. JOINTS: No dislocation present. Hip joint spaces are well maintained. Mild bilateral acetabular spur ring. SI joints show mild degenerative changes. SOFT TISSUE: Soft tissue calcifications in upper right thigh. IMPRESSION: Mild degenerative changes of both hips. DATA REPOSITORY: RADIATION DOSE DELIVERED:
== END ==
PROVIDERS: PCP Nurse Practitioner Family; Visit Provider Nurse Practitioner Family
DX: M25.552 Pain in left hip (principal); M16.0 Bilateral primary osteoarthritis of hip; M53.3 Sacrococcygeal disorders, not elsewhere classified; R05.8 Other specified cough; R06.02 Shortness of breath
CPT/HCPCS: 73521; 71046

== ENCOUNTER 2022-10-07 01:49 | Outpatient (CLI) | payer MEDICARE, BC, SELFPAY ==
[2022-10-07] MEDS: Albuterol HFA 18 GM 200 PUFF INH IH (12:10)
[2022-10-07] MEDS: Methacholine 100 MG VIAL IH (12:10)
[2022-10-07] MEDS: Inhaler, Assist Device 1 EACH MC (12:11)
--- NOTE | 2022-10-08 13:43 | W.PFT ---
Date of service: 10/07/22 Time of Service: 10:08 Pulmonary Function Test Result Requesting Provider Zenobia Cota Indications: Dyspnea Interpretation Spirometry: There is no baseline airflow limitation. There was a decreased of 33% in FEV1% with administration of 4.0mg/mL methacholine. Impression Positive methacholine challenge test. Clinical Correlation therefore is recommended.
--- NOTE | 2022-10-08 13:45 | W.PFT ---
Date of service: 10/07/22 Time of Service: 10:08 Pulmonary Function Test Result Requesting Provider Zenobia Cota Indications: Dyspnea Interpretation Spirometry: There is no airflow limitation Lung Volumes: Normal lung volumes Diffusion Capacity: Normal diffusion Airway Pressure: Normal airways resistance Impression Normal pulmonary function test Clinical Correlation therefore is recommended.
== END 2022-10-07 01:50 | disposition home or self-care (01) ==
LOC: RT 01:49
PROVIDERS: PCP Nurse Practitioner Family; Visit Provider Nurse Practitioner Family
DX: R06.02 Shortness of breath (principal); R06.09 Other forms of dyspnea; R94.2 Abnormal results of pulmonary function studies
CPT/HCPCS: 94060; 94070; 94726; 94729; 94010; J7674

== ENCOUNTER 2022-11-26 00:41 | Outpatient (CLI) | payer MEDICARE, BC, SELFPAY ==
--- NOTE | 2022-11-26 | DI.CT_ITS ---
Exam(s) CT CHEST HIGH RESOLUTION EXAM: CT CHEST HIGH RESOLUTION CLINICAL HISTORY: SOB, R06.02,? INTERSTITIAL LUNG DISEASE,H/O OCCUP EXPOSURE TO PAINT VAPORS,. TECHNIQUE: Imaging protocol: Axial computed tomography images were obtained and coronal and sagittal reformatted images were created and reviewed. High-resolution images were also obtained. COMPARISON: CR XR CHEST 2V PA LATERAL from 08/04/2022 FINDINGS: Tracheobronchial tree: Patent where visualized. Pulmonary parenchyma: No consolidation or dominant measurable mass. No architectural distortion. Ther e is no evidence of interstitial disease. No cystic changes are seen in the lungs. There is no evid ence of bronchiectasis. Mediastinum and Laura: No dominant adenopathy or fluid collection. The esophagus is unremarkable. Thyroid gland: Unremarkable. Pleura: No effusion or pneumothorax. Heart: The heart is not dilated. Mild coronary artery calcification is present. No pericardial effus ion. Aorta: Thoracic aorta non-dilated. Atherosclerosis is present. Upper abdomen: Unremarkable. Lymph nodes: Within normal limits. Soft tissues: Unremarkable. Bones:Within normal limits for the patient's age. There are marked degenerative changes seen in the left glenohumeral joint. There are old healed rib fractures. IMPRESSION: 1. No acute pulmonary process. 2. No evidence of interstitial disease. No bronchiectasis is present. RADIATION DOSE DELIVERED: 512.7mGy.cm Total DLP 512.7mGy.cm Total DLP DATA REPOSITORY: All CT scans at this facility are submitted to the National Radiology Data Registry (NRDR) Dose Index Registry (DIR) with the [employer] (ACR). RADIATION OPTIMIZATION: All CT scans at this facility use at least one of these dose optimization te chniques: automated exposure control; mA and/or kV adjustment per patient size (includes targeted exa ms where dose is matched to clinical indication); or iterative reconstruction.
== END 2022-11-26 01:01 ==
LOC: DI 00:42
PROVIDERS: PCP Nurse Practitioner Family; Visit Provider Nurse Practitioner Family
DX: R06.02 Shortness of breath (principal); Z57.5 Occupational exposure to toxic agents in other industries
CPT/HCPCS: 71250

== ENCOUNTER 2022-12-20 14:14 | Outpatient (REF) | payer MEDICARE, BC, SELFPAY ==
[2022-12-20 16:54] LABS: Anion Gap 8.8 mmol/L (3-11); BUN 15 mg/dL (7-18); CO2 27.2 mmol/L (21.0-32.0); CREATININE 0.8 mg/dL (0.55-1.02); Calcium 9.4 mg/dL (8.5-10.1); Chloride 104 mmol/L (98-107); Estimated GFR 77.75 (mL/min/1.73m2); Glucose 109 mg/dL (74-106); Potassium 4.3 mmol/L (3.5-5.1); Sodium 140 mmol/L (136-145)
== END 2022-12-20 14:15 | disposition home or self-care (01) ==
LOC: NCHCN 14:14
PROVIDERS: PCP Nurse Practitioner Family; Visit Provider Nurse Practitioner Family
DX: E78.5 Hyperlipidemia, unspecified (principal); Z79.899 Other long term (current) drug therapy
CPT/HCPCS: 80048

== ENCOUNTER 2023-03-03 08:43 | Outpatient (CLI) | payer MEDICARE, BC, SELFPAY ==
--- NOTE | 2023-03-03 06:00 | DI.RAD_ITS ---
Exam(s) XR PAIN CLINIC LUMBAR SP 2V EXAM: XR PAIN CLINIC LUMBAR SP 2V CLINICAL HISTORY: DX: Lumbar Spondylosis TECHNIQUE: 2D and realtime digital imaging was performed. CONTRAST MATERIAL: Refer to procedure report. COMPARISON: No exams were available for comparison FINDINGS: Fluoroscopy was provided for Dr. Jiang during the performance of a lumbar radiofrequency ablation. P lease refer to the procedure report for complete details. Ka,r=21.4 mGy IMPRESSION:
[2023-03-03 09:02] VITALS: BP 117/68; PULSE 65; RESP 20; TEMP 36.6; O2SAT 98
[2023-03-03] MEDS: fentaNYL 100 MCG/2 ML VIAL IVP ×3 (09:31→09:46)
[2023-03-03] MEDS: Lactated Ringers 500 ML 80 ML IV (09:32)
[2023-03-03] MEDS: Midazolam 2 MG/2 ML VIAL IVP (09:32)
[2023-03-03 10:15] VITALS: BP 103/61; PULSE 67; RESP 16; O2SAT 96
--- NOTE | 2023-03-03 10:17 | PDOC.PAIN ---
Date of service: 03/03/23 Time of Service: 10:30 Pain Managment Procedure Note Procedure Note Procedure Note: Bilateral Lumbar Radiofrequency with A[employer] Machine PROCEDURE NOTE Date of Service: March 03, 2023 Patient: Sharon Buchanan Provider: Justus Jiang DO, MPH Pre Operative Diagnosis: Lumbosacral Spondylosis without Myelopathy Post Operative Diagnosis: Same Post procedure pain; VAS= 8/10 Comments: She last had this on 03/04/22 and had >50% pain relief through September of 2022. PROCEDURE: Radiofrequency Ablation of medial branches - Bilateral L3 L4 L5 and lateral branches of bilateral S1. Sharon Buchanan was brought into the fluoroscopy suite and positioned into the prone position on the fluoroscopy table and allowed to adjust to a position of comfort. A grounding pad was placed on the left abdomen. The lumbar region was widely prepped with a chloraprep solution, allowed to air dry and draped in standard sterile surgical fashion. Local anesthesia was provided by 4 mL of 2% Lidocaine delivered with a 25g needle. A 17g 100 mm radiofrequency introducer needle was placed to the planned anatomic targets guided with intermittent fluoroscopy with a perpendicular approach to terminally place at the junction of the superior articular process and the transverse process of the bilateral L4, L5, the base of the sacral ala on the bilateral for the L5 medial branch nerve and the area between base of the sacral ala to the S1 foramen bilaterally. The stylets were removed and radiofrequency probes with a 4mm active tip were then inserted. Needle tip position of the probes was verified in the AP, oblique, and lateral views. At each site, the medial branch nerve was stimulated at 2 Hz to a maximum 1-2 volts determined to finalize safe needle and electrode placement. The patient was awake and responsive during this portion of the procedure. Each target was anesthetized with 1-2 mL of 2% Lidocaine for anesthesia for lesioning and then each target was lesioned at 80 degrees Celsius for 2 minutes and 30 seconds. Tissue impedences were noted to be between 250 and 500 Ohms. I then injected 1/4 cc of Depomedrol (40 mg/cc) followed by 1 cc of 0.5% Bupivacaine at each segmental sensory nerve. Electrodes and needles were then removed and bandages placed over the needle placement sites, the patient then returned to the supine position on a stretcher and transported to the recovery room without hemodynamic, neurologic, or allergic reactions. Fluoroscopic images were printed for hard copy recording and digitally archived. POST PROCEDURE EVALUATION: IMPRESSION: 1. Summary of procedure. Medication given is documented in the MAR. 2. The patient will be contacted in 1-3 weeks 3. Estimated Blood Loss: <5 mls 4. Fluoroscopy time: Documented in the EMR. Follow up plans and appointments were discussed with the Sharon . Post procedure instruction was given as documented in nursing documentation and having met discharge criteria, Sharon was discharged from the [facility]. COMMENTS: No apparent complications. Post-procedure pain: VAS= 4/10. This procedure can be repeated if she achieves at least 6 months of at least 50% pain and/or functional improvement with this procedure. Justus Jiang DO, MPH [facility]-Pain Management [facility]
[2023-03-03] MEDS: methylPREDNISolone ACETATE 40 MG/ML VIAL IJ (10:20)
[2023-03-03] MEDS: Lidocaine 2% Pres-Free 5 ML VIAL IJ (10:21)
[2023-03-03] MEDS: Bupivacaine 0.5% Pres-Free 10 ML VIAL IJ (10:21)
== END 2023-03-03 08:44 | disposition home or self-care (01) ==
LOC: PC 08:43
PROVIDERS: PCP Nurse Practitioner Family; Visit Provider Preventive Medicine Occupational Medicine
DX: M47.817 Spondylosis without myelopathy or radiculopathy, lumbosacral region (principal); M54.50 Low back pain, unspecified
CPT/HCPCS: 64635; 64636; 72100; J1030; J2250; J3010

== ENCOUNTER 2023-04-19 11:43 | Outpatient (CLI) | payer MEDICARE, BC, SELFPAY ==
--- NOTE | 2023-04-19 | DI.MRI_ITS ---
Exam(s) MR LUMBAR SPINE WO EXAM: MR LUMBAR SPINE WO CLINICAL HISTORY: LUMBAR SPONDYLOSIS, M47.816; SACRAL FORAMINAL STENOSIS, M53.88;. TECHNIQUE: Multiplanar multisequence MRI of the Lumbar spine was performed. FINDINGS: The examination is limited due to patient motion artifact. Bones: The last intervertebral disc space is designated the L5/S1 level for the numbering purpose of this examination. There is L5 spondylolysis and grade 1 spondylolisthesis of L5 on S1. Endplate deg enerative signal changes are present throughout the lumbar spine. There is a left convex curvature o f the lower lumbar spine. There is new decreased T1 and hyperintense T2 and STIR signal in the left aspect of the sacrum. There is a question of a linear hypointense signal paralleling the sacroiliac joint in the left sacral ala suspicious for a fracture. Cord: The conus tip ends at the L1 level. It is of normal size and signal intensity. T12-L1: No disc herniations or bulges are present. No central spinal canal or neural foraminal stenos is. L1-2: There is a diffuse disc bulge. There is mild central spinal canal stenosis. No significant ri ght neural foraminal stenosis. There is mild left neural foraminal stenosis. L2-3: No disc herniations or bulges are present. No significant central spinal canal or right neural foraminal stenosis. There is moderate left neural foraminal stenosis. L3-4: There is a diffuse disc bulge. There are hypertrophic changes of the facets and ligamentum fla vum. The findings result in moderate central spinal canal stenosis. There is marked right neural fo raminal stenosis. No significant left neural foraminal stenosis. L4-5: There is a diffuse disc bulge. There are hypertrophic changes of the facets and ligamentum fla vum. These all contribute to cause moderately severe central spinal canal stenosis. There is modera te right and mild left neural foraminal stenosis. L5-S1: There are degenerative changes of the facets. This in conjunction with the spondylolisthesis causes marked central spinal canal stenosis. There is marked bilateral neural foraminal stenosis. Soft tissues: The visualized SI joints and sacrum are well maintained. The paraspinal soft tissues ar e unremarkable. IMPRESSION: 1. New abnormal signal seen in the left sacral ala with hypointense T1 and hyperintense STIR and T2 s ignal. There does appear to be a linear hypo intense line paralleling the sacroiliac joint in the le ft sacral ala suspicious for fracture. This may represent an insufficiency fracture. Metastatic dis ease should also be considered. 2. Multilevel degenerative changes resulting in central spinal canal and neural foraminal stenosis. The findings are most marked from L3-4 through L5-S1. Please see the above discussion for complete d etails. DATA REPOSITORY:
== END 2023-04-19 12:03 ==
LOC: DI 11:43
PROVIDERS: PCP Nurse Practitioner Family; Visit Provider Nurse Practitioner Family
DX: M47.816 Spondylosis without myelopathy or radiculopathy, lumbar region (principal); M53.88 Other specified dorsopathies, sacral and sacrococcygeal region
CPT/HCPCS: 72148

== ENCOUNTER → 2023-06-16 02:27 | Outpatient (CLI) | payer MEDICARE, BC, SELFPAY ==
--- NOTE | 2023-06-16 | DI.CT_ITS ---
Exam(s) CT PELVIC WO EXAM: CT PELVIC WO CLINICAL HISTORY: SACRAL DISORDER M53.3 ? FX OR METS DISEASE. TECHNIQUE: Imaging Protocol: Axial computed tomography images with coronal and sagittal reformatted images were created and reviewed CONTRAST MATERIAL: Intravenous: none Oral: None COMPARISON: MR MR LUMBAR SPINE WO from 04/19/2023 FINDING: PELVIS: OSSEOUS: There is a vertically orientated sacral insufficiency fracture in the left side of the sacru m, best seen on the coronal reconstructed images. This is parallel to the left sacroiliac joint and corresponds to the finding on the recent MRI.There are no fractures in the right-side of the sacrum. There is no evidence of significant hematoma in the pelvic musculature and no free fluid in the pelv is. There do not appear to be lytic lesions nor blastic lesions. There is degenerative anterolisthesis L5 upon S1 with approximately 1 cm anterior slippage of L5 upon S1 related to facet arthropathy. There is also advanced disc space narrowing at this level as well as at the L4-5 disc space. There is no listhesis at L4-5 level. Vacuum phenomenon is seen within isidoro th of these disc spaces. OTHER: No significant anterior abdominal hernia. No inguinal hernia. There is sigmoid diverticulosis. No evidence of obvious acute diverticulitis. The appendix is not included in the field of view of this study. There is no intrapelvic nor inguinal adenopathy. Uterus and adnexal regions are age-appropriate. IMPRESSION: 1. Left-sided sacral insufficiency fracture. This corresponds to the finding on the recent MRI scan. No significant displacement. No intra pelvic hematoma. 2. Sigmoid diverticulosis. No obvious acute diverticulitis. 3. Other findings as above. RADIATION DOSE DELIVERED: 477.85mGy.cm Total DLP DATA REPOSITORY: All CT scans at this facility are submitted to the National Radiology Data Registry (NRDR) Dose Index Registry (DIR) with the [employer] (ACR). RADIATION OPTIMIZATION: All CT scans at this facility use at least one of these dose optimization te chniques: automated exposure control; mA and/or kV adjustment per patient size (includes targeted exa ms where dose is matched to clinical indication); or iterative reconstruction.
== END ==
PROVIDERS: PCP Nurse Practitioner Family; Visit Provider Nurse Practitioner Family
DX: M53.3 Sacrococcygeal disorders, not elsewhere classified (principal); K57.30 Diverticulosis of large intestine without perforation or abscess without bleeding; M48.48XA Fatigue fracture of vertebra, sacral and sacrococcygeal region, initial encounter for fracture
CPT/HCPCS: 72192

== ENCOUNTER 2023-07-12 07:25 | Outpatient (CLI) | payer MEDICARE, BC, SELFPAY ==
[2023-07-12 07:52] VITALS: BP 108/63; PULSE 63; RESP 20; TEMP 36.4; O2SAT 97
--- NOTE | 2023-07-12 08:00 | DI.RAD_ITS ---
Exam(s) XR PAIN CLINIC FLUORO JOINT IN EXAM: XR PAIN CLINIC FLUORO JOINT IN CLINICAL HISTORY: Dx: Shoulder arthritis. TECHNIQUE: Fluoroscopy was provided for the referring physician for guidance with performing pain cl inic injection procedure. COMPARISON: No exams were available for comparison FINDINGS: Please see procedure note for details. Fluoro time: 13.0 seconds RADIATION DOSE DELIVERED: anibal Rodriguez=0.84 mGy
[2023-07-12 08:41] VITALS: BP 102/75; PULSE 58; RESP 18; O2SAT 97
--- NOTE | 2023-07-12 08:41 | PDOC.PAIN_ITS ---
Date of service: 07/12/23 Time of Service: 08:41 Pain Managment Procedure Note Procedure Note Procedure Note: PROCEDURE NOTE LEFT INTRA-ARTICULAR SHOULDER JOINT DILATION AND STEROID INJECTION Date of Service: July 12, 2023 Patient:? Sharon Buchanan? Provider:? Justus Jiang DO, MPH Sharon Buchanan has been referred to the [facility] for LEFT intra-articular shoulder joint dilation and injection. Pre-operative diagnosis: Knee Osteoarthritis Post-operative diagnosis: Same Pre-procedure pain: VAS=5/10 COMMENTS: I previously evaluated her in the office. She has left shoulder Adhesive Capsulitis Sharon?was interviewed and the medical record was reviewed.? There were no medical, pharmacologic, radiographic or other structural contraindications to attempting fluoroscopically guided LEFT intra-articular shoulder joint dilation and injection.? Risks and expected side effects as well as potential benefit of the procedure were reviewed with Sharon, and the patient's voiced concerns were addressed.? The printed consent form was signed.? Standard time-out procedure was performed. Sharon was placed in the supine position on the fluoroscopy table and the pulse oximeter was applied. The skin entry point for approaching supero- anterior aspect of the LEFT humeral head area was identified under the most advantageous fluoroscopic view and marked. Following thorough Chlorhexadine preparation of the skin and draping, 1% lidocaine infiltration of the skin entry point and subcutaneous tissues was accomplished using a 1.5 25G needle. Next, the 1.5 25G needle was advanced to the center of the superior aspect of the humeral head under fluoroscopic guidance into the LEFT shoulder joint. Intra- articular placement was confirmed by a clear arthrogram resulting from the injection of 1 ml Omnipaque 240. Next, 40 mg Depo-Medrol mixed with 5 mls of 1% Lidocaine was injected into the joint. This was followed by 18 cc of Normal Saline. The Normal Saline injection was stopped when added pressure was felt with the injection. (49 mls of Omnipaque was wasted). There was no unusual discomfort expressed by Sharon. The needle was withdrawn without difficulty. Sharon was observed and was without hemodynamic, neurologic, or allergic reactions.? Fluoroscopic images were digitally archived. Sharon's vital signs were stable throughout the procedure and were as recorded in the docflowsheet by the nursing staff. If given, dosages of intravenous drugs for anxiolysis and analgesia were documented in MAR. Follow up plans and appointments were discussed with Sharon.? Post procedure instruction was given as documented in nursing documentation and having met discharge criteria, [facility] COMMENTS: No apparent complications. Post-procedure pain: VAS= 5/10. Sharon to contact [facility] as needed. If at least 50% improvement in pain and/or function for at least 3 months is achieved, this procedure can be repeated. I personally completed the entire procedure. JUSTUS JIANG DO, MPH ABPM&R - Subspecialty board certification in Pain Medicine [facility] [facility]
[2023-07-12] MEDS: Normal Saline 20 ML VIAL 10 ML IJ (08:45)
[2023-07-12] MEDS: Omnipaque 240 MG/ML 50 ML BTL IJ (08:45)
[2023-07-12] MEDS: Lidocaine 1% Pres-Free 5 ML VIAL IJ (08:45)
[2023-07-12] MEDS: methylPREDNISolone ACETATE 40 MG/ML VIAL IJ (08:45)
== END 2023-07-12 07:26 | disposition home or self-care (01) ==
LOC: PC 07:27
PROVIDERS: PCP Nurse Practitioner Family; Visit Provider Preventive Medicine Occupational Medicine
DX: M19.011 Primary osteoarthritis, right shoulder (principal); M25.511 Pain in right shoulder
CPT/HCPCS: 20610; 77002; J1030; Q9967

== ENCOUNTER 2023-08-09 19:16 | Outpatient (REF) | payer MEDICARE, BC, SELFPAY ==
[2023-08-09 16:10] LABS: ALT 23 U/L (14-59); AST 28 U/L (15-37); Albumin 3.9 g/dL (3.4-5.0); Alkaline Phosphatase 64 U/L (46-116); BUN 14 mg/dL (7-18); Bilirubin, Total 0.4 mg/dL (0.2-1.0); CREATININE 0.7 mg/dL (0.55-1.02); Calcium 9.2 mg/dL (8.5-10.1); Chloride 101 mmol/L (98-107); Creatine Kinase 118 U/L (26-192); Glucose 104 mg/dL (74-106); HDL Cholesterol 113 mg/dL (40-60); LDL CHOLESTEROL 73 mg/dL (<100); Potassium 4.1 mmol/L (3.5-5.1); Sodium 137 mmol/L (136-145); TSH 2.33 uIU/mL (0.36-3.74); Total Protein 7.2 g/dL (6.4-8.2)
[2023-08-12 14:36] LABS: O-desmethyltramadol 27028 ng/mL (Cutoff:25); Tramadol 4798 ng/mL (Cutoff:25)
== END 2023-08-09 19:17 | disposition home or self-care (01) ==
LOC: NCHCN 19:16
PROVIDERS: PCP Nurse Practitioner Family; Visit Provider Nurse Practitioner Family
DX: E78.5 Hyperlipidemia, unspecified (principal); M47.816 Spondylosis without myelopathy or radiculopathy, lumbar region
CPT/HCPCS: 80053; 80373; 82550; 83721; 83718; 84439; 84443

== ENCOUNTER → 2023-08-17 01:31 | Outpatient (CLI) | payer MEDICARE, BC, SELFPAY ==
--- NOTE | 2023-08-17 | DI.RAD_ITS ---
Exam(s) XR HAND RT COMPLETE EXAM: XR HAND RT COMPLETE CLINICAL HISTORY: RT HAND PAIN M79.641. TECHNIQUE: 2D digital imaging was performed of the right hand. Three images were obtained. AP, late ral and oblique views were obtained. COMPARISON: CR XR HAND RT COMPLETE from 06/11/2022 FINDINGS: BONES: No acute fracture is present. No bony destructive lesion is seen. There is a subchondral cyst seen in the distal radius. JOINTS: No dislocation present. There are marked degenerative changes seen in the right hand characte rized by joint space narrowing and osteophytes. The findings are most marked at the 1st CMC joint. SOFT TISSUE: Normal. IMPRESSION: Marked degenerative changes of the right hand. DATA REPOSITORY: RADIATION DOSE DELIVERED:
== END ==
PROVIDERS: PCP Nurse Practitioner Family; Visit Provider Nurse Practitioner Family
DX: M19.041 Primary osteoarthritis, right hand (principal)
CPT/HCPCS: 73130

== ENCOUNTER 2023-11-24 09:51 | Outpatient (CLI) | payer MEDICARE, BC, SELFPAY ==
--- NOTE | 2023-11-24 06:00 | DI.RAD_ITS ---
Exam(s) XR PAIN CLINIC FLUORO JOINT IN EXAM: XR PAIN CLINIC FLUORO JOINT IN CLINICAL HISTORY: DX: Left shoulder osteoarthritis. TECHNIQUE: 2D and realtime digital imaging was performed. COMPARISON: No exams were available for comparison FINDINGS: A hard copy image shows a fixation plate in the proximal humerus. Contrast is being injected into th e glenohumeral joint Please see procedure note for details. Fluoro time: 23.1seconds RADIATION DOSE DELIVERED: anibal Rodriguez=1.85 mGy
[2023-11-24 10:14] VITALS: BP 124/70; PULSE 65; RESP 14; TEMP 36.9; O2SAT 96
[2023-11-24 10:45] VITALS: RESP 59; O2SAT 98
--- NOTE | 2023-11-24 10:47 | PDOC.PAIN_ITS ---
Date of service: 11/24/23 Time of Service: 10:47 Pain Managment Procedure Note Procedure Note Procedure Note: ?PROCEDURE NOTE ?LEFT INTRA-ARTICULAR SHOULDER JOINT DILATION AND STEROID INJECTION Date of Service: November 24, 2023 Patient:? Sharon Buchanan? Provider:? Justus Jiang DO, MPH Sharon Buchanan has been referred to the [facility] for LEFT intra-articular shoulder joint dilation and injection. Pre-operative diagnosis: Left Shoulder Osteoarthritis Post-operative diagnosis: Same Pre-procedure pain: VAS=7/10 COMMENTS:?I previously evaluated her in the office. She has left shoulder Adhesive Capsulitis. She last had this procedure in July of 2023 and had >50% pain improvement for >3 months. Sharon?was interviewed and the medical record was reviewed.? There were no medical, pharmacologic, radiographic or other structural contraindications to attempting fluoroscopically guided LEFT intra-articular shoulder joint dilation and injection.? Risks and expected side effects as well as potential benefit of the procedure were reviewed with Sharon, and the patient's voiced concerns were addressed.? The printed consent form was signed.? Standard time-out procedure was performed. Sharon was placed in the supine position on the fluoroscopy table and the pulse oximeter was applied. The skin entry point for approaching supero-anterior aspect of the LEFT humeral head area was identified under the most advantageous fluoroscopic view and marked. Following thorough Chlorhexadine preparation of the skin and draping, 1% lidocaine infiltration of the skin entry point and subcutaneous tissues was accomplished using a 1.5 25G needle. Next, the 1.5 25G needle was advanced to the center of the superior aspect of the humeral head under fluoroscopic guidance into the LEFT shoulder joint. Intra-articular placement was confirmed by a clear arthrogram resulting from the injection of 1 ml Omnipaque 240. Next, 40 mg Depo-Medrol mixed with 5 mls of 1% Lidocaine was injected into the joint. This was followed by 19 cc of Normal Saline. The Normal Saline injection was stopped when added pressure was felt with the injection. (49 mls of Omnipaque was wasted). There was no unusual discomfort expressed by Sharon. The needle was withdrawn without difficulty. Sharon was observed and was without hemodynamic, neurologic, or allergic reactions.? Fluoroscopic images were digitally archived. Sharon's vital signs were stable throughout the procedure and were as recorded in the docflowsheet by the nursing staff. If given, dosages of intravenous drugs for anxiolysis and analgesia were documented in MAR. Follow up plans and appointments were discussed with Sharon.? Post procedure instruction was given as documented in nursing documentation and having met discharge criteria, Sharon [facility] from the [facility]. COMMENTS:?No apparent complications. Post-procedure pain: VAS= 6/10. Sharon to contact [place] [facility] as needed. If at least 50% improvement in pain and/or function for at least 3 months is achieved, this procedure can be repeated. I personally completed the entire procedure. JUSTUS JIANG DO, MPH ABPM&R - Subspecialty board certification in Pain Medicine [facility] [facility]
[2023-11-24] MEDS: Nerve Block Tray 1 EACH MC (10:55)
[2023-11-24] MEDS: Lidocaine 1% Pres-Free 5 ML VIAL IJ (10:56)
[2023-11-24] MEDS: Normal Saline 20 ML VIAL 10 ML IJ (10:56)
[2023-11-24] MEDS: methylPREDNISolone ACETATE 40 MG/ML VIAL IJ (10:56)
[2023-11-24] MEDS: Omnipaque 240 MG/ML 50 ML BTL IJ (10:57)
== END 2023-11-24 09:52 | disposition home or self-care (01) ==
LOC: PC 09:53
PROVIDERS: PCP Nurse Practitioner Family; Visit Provider Preventive Medicine Occupational Medicine
DX: M19.012 Primary osteoarthritis, left shoulder (principal); M75.02 Adhesive capsulitis of left shoulder
CPT/HCPCS: 00123; 20610; 77002; J1030; J2003; Q9967

== ENCOUNTER 2023-11-29 16:24 | Outpatient (REF) | payer MEDICARE, BC, SELFPAY ==
[2023-11-29 17:15] LABS: Bacteria Rare HPF (Negative); C & S Indicated? C&S Done As Ordered; Crystals Negative HPF (Negative); Epithelial Cells Rare HPF (Negative); Mucus Negative (Negative); RBC 0-2 HPF (0-2); WBC Negative HPF (0-5)
== END 2023-11-29 16:25 | disposition home or self-care (01) ==
LOC: LBN 16:24
PROVIDERS: PCP Nurse Practitioner Family; Visit Provider Nurse Practitioner Family
DX: R30.0 Dysuria (principal)
CPT/HCPCS: 81015; 87086; 87480; 87510; 87660

== ENCOUNTER 2023-12-14 16:23 | Outpatient (REF) | payer MEDICARE, BC, SELFPAY ==
[2023-12-22 13:27] LABS: EDDP-by GC-MS None Detected ng/mL (Cutoff: 100); Methadone-by GC-MS None Detected ng/mL (Cutoff: 100)
== END 2023-12-14 16:24 | disposition home or self-care (01) ==
LOC: NCHCN 16:23
PROVIDERS: PCP Nurse Practitioner Family; Referring Provider Nurse Practitioner Family; Visit Provider Nurse Practitioner Family
DX: Z51.81 Encounter for therapeutic drug level monitoring (principal)
CPT/HCPCS: 80358

== ENCOUNTER → 2024-08-06 13:44 | Outpatient (BNVA) | payer MEDICARE, BC, SELFPAY | PROVIDERS: PCP Nurse Practitioner Family; Referring Provider Nurse Practitioner Family; Visit Provider Student in an Organized Health Care Education/Training Program | DX: M18.11 Unilateral primary osteoarthritis of first carpometacarpal joint, right hand (principal); G56.21 Lesion of ulnar nerve, right upper limb | CPT/HCPCS: 99213 ==

== ENCOUNTER 2024-08-17 01:55 | Outpatient (CLI) | payer MEDICARE, BC, SELFPAY ==
[2024-08-17 08:47] LABS: Calculated LDL 97 mg/dL (<100); Cholesterol 209 mg/dL (<200); HDL Cholesterol 105 mg/dL (40-60); Triglyceride 39 mg/dL (<150)
== END 2024-08-17 01:56 | disposition home or self-care (01) ==
LOC: LBO 01:55
PROVIDERS: PCP Nurse Practitioner Family; Visit Provider Nurse Practitioner Family
DX: E78.5 Hyperlipidemia, unspecified (principal); R94.6 Abnormal results of thyroid function studies
CPT/HCPCS: 36415; 80061; 84443

== ENCOUNTER 2024-08-22 09:54 | Emergency (ER) | payer MEDICARE, BC, SELFPAY ==
[2024-08-22 10:01] VITALS: BP 137/79; PULSE 69; RESP 17; TEMP 36.3; O2SAT 97
--- NOTE | 2024-08-22 10:15 | DI.RAD_ITS ---
Exam(s) XR RIBS LT PA CHEST 3V EXAM: XR RIBS LT PA CHEST 3V CLINICAL HISTORY: fall; L rib pain. TECHNIQUE: 2D digital imaging was performed. COMPARISON: CR XR CHEST 2V PA LATERAL from 08/04/2022 FINDINGS: Total four views Left ribs-three views: There are healed fractures of the left 3rd 4th and 5th ribs. On 1 image there is a subtle suggestion of a fracture of the 11th rib. Chest [id number]-[id number] frontal view: There is platelike atelectasis in the lower left lung field now evid ent. No lung contusion nor pleural effusion. No pneumothorax. Heart size is normal and the mediast inum is not widened or shifted. Hardware again noted in the left humerus. IMPRESSION: Subtle left 11th rib fracture. Adjacent subsegmental platelike atelectasis in the lower left lung fi eld. No pleural effusion. No pneumothorax. DATA REPOSITORY: RADIATION DOSE DELIVERED:
--- NOTE | 2024-08-22 10:16 | W.ED.GENAD ---
Discharge Plan Disposition Patient Disposition: Home Condition: Stable Discharge Details Clinical Impression: Left rib fracture Primary Care Provider: Zenobia Cota ED Provider: Harley Orlando Home Meds and New Rx's Prescriptions: Continued Premarin 0.625 mg/gram cream 0.3125 mg vaginal .weekly Rx Instructions: off 5 days; repeat cycle atorvastatin 10 mg tablet 5 mg PO DAILY omeprazole 20 mg tablet,delayed release (DR/EC) 20 mg PO DAILY tramadol 50 mg tablet 100 mg PO BID PRN (Reason: pain) Qty: 112 2RF magnesium 250 mg tablet 500 mg PO DAILY levothyroxine 50 mcg tablet 50 mcg PO DAILY Qty: 90 3RF trazodone 100 mg tablet 150 mg PO HS 90 Days Qty: 135 1RF cholecalciferol (vitamin D3) 1,000 UNIT capsule 2 tab PO DAILY pregabalin 50 mg capsule 50 mg PO DAILY Patient Comments: TAKE 1 CAPSULE BY MOUTH TWICE A DAY. montelukast 10 mg Tablet 10 mg PO DAILY Discharge Instructions Instructions: Rib Fracture or Bruised Rib ED Additional Instructions: You were seen in the emergency department for the fall last night which caused a subtle nondisplaced left rib fracture. You have no pneumothorax or popped lung. You may apply an znlh-cry-hdupqkr lidocaine patch to the area of pain for 12 hours each day, you can apply [id number]-ymm-hqhxcnv Voltaren gel which is a topical anti-inflammatory to the area of pain 2-3 times per day as needed. Please take 650 mg of Tylenol every 4-6 hours, as well as your tramadol for pain as needed. Place ice to the area and keep a large bulky blanket or pillow between your rib cage and your arm to stabilize the bone especially during coughing or sneezing or other activities that will cause significant pain. Please return to the emergency department for sharp increase in shortness of breath, developing cough or fever respiratory infection or other emergent concerns. Referrals: Zenobia Cota APRN [Primary Care Provider] - HPI General Date/Time Provider Initiated Documentation: 08/22/24 10:09. HPI Narrative: 74 year-old female presents to ED today by POV/ambulating with a chief complaint of fall last night with L posterior lower rib pain, mild SOB with deep inspiration. Quality described as sharp pain in the left posterior ribs with deep inspiration, oriented about having a collapsed lung as she has had this in the past, no radiation to cough, fever, midline back pain, head strike, LOC, palpitations as cause of fall, dizziness. Severity is described as 9. Palliating factors include nothing specific attempted, patient cannot take NSAIDs due to colitis. Provoking factors include deep breaths. Patient not anticoagulated. Related Data Home Medications ?Medication ?Instructions ?Recorded ?Confirmed cholecalciferol (vitamin D3) 25 2 tab PO DAILY 02/26/15 08/22/24 mcg (1,000 unit) capsule magnesium 250 mg tablet 500 mg PO DAILY 06/26/21 08/22/24 conjugated estrogens 0.625 mg/gram 0.3125 mg vaginal .weekly 11/16/21 08/22/24 vaginal cream (Premarin) pregabalin 50 mg capsule 50 mg PO DAILY 06/11/22 08/22/24 montelukast 10 mg tablet 10 mg PO DAILY 03/03/23 08/22/24 atorvastatin 10 mg tablet 5 mg PO DAILY 05/11/24 08/22/24 omeprazole 20 mg tablet,delayed 20 mg PO DAILY 05/11/24 08/22/24 release tramadol 50 mg tablet 100 mg (2 x 50 mg) PO BID PRN pain 05/16/24 08/22/24 #112 tabs levothyroxine 50 mcg tablet 50 mcg PO DAILY #90 tabs 06/27/24 08/22/24 trazodone 100 mg tablet 150 mg (1.5 x 100 mg) PO HS 3 06/27/24 08/22/24 months #135 tabs Previous Rx's ?Medication ?Instructions ?Recorded tramadol 50 mg tablet 100 mg (2 x 50 mg) PO BID PRN pain 05/16/24 #112 tabs levothyroxine 50 mcg tablet 50 mcg PO DAILY #90 tabs 06/27/24 trazodone 100 mg tablet 150 mg (1.5 x 100 mg) PO HS 3 06/27/24 months #135 tabs Allergies Allergy/AdvReac Type Severity Reaction Status Date / Time gabapentin Allergy Intermediate rash Verified 08/22/24 10:06 hydrocodone bitartrate (From Allergy Intermediate Hives Verified 08/22/24 10:06 Vicodin) General Stated Complaint: Orthopedic KARIME: 3 Review of Systems All systems reviewed & are unremarkable except as noted in HPI and below Exam Narrative Exam Narrative: GENERAL APPEARANCE: Well-nourished, non-toxic, awake and alert, atraumatic, no acute distress. SKIN: Warm, pink, dry, intact, without rashes/lesions/ulcerations. HEAD: Normocephalic, atraumatic, normal hair distribution for gender/age. EYES: Normal conjunctiva, no exudates on lids/lashes. ENT: Nares patent, no circumoral cyanosis, no facial swelling NECK: Supple, trachea midline, painless cervical ROM. LUNGS/CHEST: Lungs CTA bilaterally, non-labored respirations, normal A/P diameter, symmetrical expansion, no chest wall deformity, tenderness to the left posterior ribs, there is a 0.2 cm pinpoint area of ecchymosis just posterior to the mid axillary line in the lower left ribs, no midline vertebral tenderness/crepitus/step-offs, lungs CTA diffusely, no flail segment or paradoxical motion HEART (CV/PV): Regular rate and rhythm without murmur, no peripheral edema, no JVD. ABDOMEN: Soft, non-distended, no guarding. MSK: Normal ROM, no swelling/deformity to bilateral UEs or LEs, moving all extremities without weakness, no cyanosis, spine midline without tenderness, normal curvature. NEURO: Mental Status AAOx4 - alert to person, place, time, events No facial droop, no forehead involvement. Motor: No focal weakness - strength 5/5 in bilateral UEs and LEs, proximal and distal, symmetric. Sensory: sensation intact to light touch globally. Gait normal: patient ambulated without ataxia into ED room. PSYCH: euthymic, cooperative, pleasant, appropriate speech Course Vital Signs Vital signs: Vital Signs Temperature 36.3 C L 08/22/24 10:01 Pulse 69 08/22/24 10:01 Respiratory Rate 17 08/22/24 10:01 Blood Pressure 137/79 08/22/24 10:01 Pulse Oximetry 97 08/22/24 10:01 Temperature 36.3 C L 08/22/24 10:01 Pulse 69 08/22/24 10:01 Respiratory Rate 17 08/22/24 10:01 Blood Pressure 137/79 08/22/24 10:01 Blood Pressure Position Sitting 08/22/24 10:01 Pulse Oximetry 97 08/22/24 10:01 Oxygen Delivery Method Room Air 08/22/24 10:01 Oxygen Flow Rate 0 08/22/24 10:01 Pain Level 8 08/22/24 10:01 Medical Decision Making This dictation utilizes yiovx-wd-ywph dictation software and may contain unedited grammatical errors. 74 year-old female presents to ED today by POV/ambulating with a chief complaint of fall last night with L posterior lower rib pain, mild SOB with deep inspiration. Quality described as sharp pain in the left posterior ribs with deep inspiration, oriented about having a collapsed lung as she has had this in the past, no radiation to cough, fever, midline back pain, head strike, LOC, palpitations as cause of fall, dizziness. Severity is described as 9/10. Palliating factors include nothing specific attempted, patient cannot take NSAIDs due to colitis-took a tramadol today without much relief. Provoking factors include deep breaths. Patients' medical history: Endorses history of pneumothorax, spinal stenosis, lumbar radiculopathy, chronic low back pain. Family and social history: Noncontributory. Pertinent exam findings / vital signs include tenderness to the left posterior ribs, there is a 0.2 cm pinpoint area of ecchymosis just posterior to the mid axillary line in the lower left ribs, no midline vertebral tenderness/crepitus/step-offs, lungs CTA diffusely, no flail segment or paradoxical motion. Differential / pathologies of concern include rib fracture, pneumothorax, rib contusion. Diagnostic studies of: -XR L ribs with PA chest-shows isolated left 11th rib fracture. Interventions of: -Tylenol, Lidoderm patching, counseled on adding tramadol, topical Voltaren to this regimen and bracing with a large pillow as well as provided incentive spirometer to prevent pneumonia. ED Course/Assessment/Plan: 74-year-old female presents with a fall last night striking her left rib cage, has isolated subtle left 11th rib fracture that is nondisplaced, has no evidence of flail segment, no pneumothorax, was provided an incentive spirometer to her from at home prevention of pneumonia and counseled on adequate pain regimen. Counseled on strict return criteria for any fever pneumonia. Findings not consistent with pneumothorax, trauma criteria, respiratory distress. Disposition of left rib fracture. Patient verbalized understanding of the plan and return to ED criteria and engaged in shared decision making. Medical Records Medical records reviewed: Yes I reviewed the patient's medical records. Imaging Data Radiologic Study: Attestation: I personally reviewed and interpreted this imaging study as follows: Imaging: X-Ray Radiologist's impression: EXAM: XR RIBS LT PA CHEST 3V CLINICAL HISTORY: fall; L rib pain. TECHNIQUE: 2D digital imaging was performed. COMPARISON: CR XR CHEST 2V PA LATERAL from 08/04/2022 FINDINGS: Total four views Left ribs-three views: There are healed fractures of the left 3rd 4th and 5th ribs. On 1 image there is a subtle suggestion of a fracture of the 11th rib. Chest h-zud-kftfjw frontal view: There is platelike atelectasis in the lower left lung field now evident. No lung contusion nor pleural effusion. No pneumothorax. Heart size is normal and the mediastinum is not widened or shifted. Hardware again noted in the left humerus. IMPRESSION: Subtle left 11th rib fracture. Adjacent subsegmental platelike atelectasis in the lower left lung field. No pleural effusion. No pneumothorax. Lab Data Lab results reviewed: Yes I reviewed the patient's lab results. Quality:SDOH Health Related Social Needs: Health related social needs details N/A PFSH All Active Problems (Updated 08/22/24 @ 11:28 by LOLI Nicholas) Left rib fracture (Acute) Osteoarthritis of carpometacarpal joint of right thumb (Acute) Cubital tunnel syndrome on right (Acute) Sacral fracture (Acute) Chronic diarrhea (Acute) Subchondral cyst (Acute) Pain in right hand (Acute) History of COVID-19 (Acute) Pain of left hip joint (Acute) Pain, joint, shoulder, left (Acute) Screening for malignant neoplasm of breast (Acute) Thyroid function test abnormal (Acute) Paresthesia (Acute) Sleep disorder (Acute) Abnormal bone density screening (Acute) Disorder of sacrum (Acute) Low back pain (Acute) Spondylosis without myelopathy (Acute) Atrophic vaginitis (Acute) Herniation of rectum into vagina (Acute) Diverticula of intestine (Acute) First degree atrioventricular block (Acute) Polyneuropathy (Acute) Lesion of ulnar nerve (Acute) Anxiety (Chronic) Lumbosacral spondylosis without myelopathy (Acute) DJD (degenerative joint disease) (Chronic) severe back issues RH Hyperlipidemia, unspecified (Acute) Bipolar disorder, unspecified (Acute) Obsessive-compulsive disorder, unspecified (Acute) PTSD (post-traumatic stress disorder) (Acute) Osteopenia (Acute) Syncope and collapse (Acute) Bradycardia (Acute) Lumbar stenosis (Acute) Lumbosacral spondylosis without myelopathy (Acute) Neurogenic claudication due to lumbar spinal stenosis (Acute) Medical History Sebaceous cyst Benign cyst of left breast Sprain and strain of other specified sites of shoulder and upper arm Ulnar neuropathy Tremor Hemorrhoids Diverticulitis Spinal stenosis Vaginitis Toe pain Abnormal thyroid stimulating hormone (TSH) level Sleep disturbance Bilateral calf pain Neck pain Chronic low back pain Paresthesia of bilateral legs Lumbar radiculopathy Sacral foraminal stenosis Urinary frequency Constipation Bitten or stung by nonvenomous insect and other nonvenomous arthropods, initial encounter Situational anxiety Left foot pain Left shoulder pain 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) Basal cell carcinoma Surgical History Hx of oral surgery 2013 H/O colonoscopy 2013 [facility] [place] Transplant or Transfer R hand R wrist fracture R ankle fx Fracture, Open Treatment plate L arm Family History Father , at 81 Scleroderma Raynauds syndrome Stroke Hypertension Prostate cancer Mother Scleroderma Sister Hypothyroid Cardiomegaly Son ADD (attention deficit disorder) Bipolar 1 disorder Son , Drowned 1998 age 26 No problems noted. Maternal Grandmother Breast cancer Paternal Uncle Diabetes Social History Smoking/Tobacco Use Status: Never Second Hand Exposure: Yes Smoking risk assessment performed?: Yes Alcohol Intake: current Alcohol Intake frequency: a few times a month Drug use: Occasionally Substance use type: marijuana Details: Marijuana 1-2 times weekly. Last taken yesterday, edible. Adopted: No Caregiver/Support person: No Foster care: No Household members: significant other Housing: house Number of Children: 3 number of grandchildren: 8 Communication Needs: None Education Level: college Details: [employer] Degree Do you need help understanding health information?: Rarely current occupation: Retired Pets and animals: Yes (1) Pets and animals: dog(s) Sexually active: Yes Do you think of yourself as: straight/heterosexual Current gender identity: female What is your relationship status?: refused to answer How often do you talk on the phone with friends or family?: once per week How often do you get together with friends or relatives?: once per week How often do you attend sikh or yazidism services?: decline to answer Do you belong to any clubs or organized social groups?: no Panel score (0-1 are the most socially isolated patients): 0 What type of physical activity do you participate in: walking and swimming Duration: 30-45 minutes/day Frequency: 3-4 times per week Alesia/Gnosticist: None Seatbelt use: always Helmet use: Yes (No reason) Helmet use: never Drive intox or ride w/intox 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
[2024-08-22] MEDS: Lidocaine 5% Patch 1 PATCH TP (11:49)
[2024-08-22] MEDS: Acetaminophen 325 MG TAB 650 MG PO (11:49)
== END 2024-08-22 12:01 | disposition home or self-care (01) ==
PROVIDERS: Emergency Provider Physician Assistant; PCP Nurse Practitioner Family
DX: S22.32XA Fracture of one rib, left side, initial encounter for closed fracture (principal); W18.39XA Other fall on same level, initial encounter; Y93.89 Activity, other specified; Y92.019 Unspecified place in single-family (private) house as the place of occurrence of the external cause
CPT/HCPCS: 71101; 99283

== ENCOUNTER 2024-10-04 10:32 | Outpatient (CLI) | payer MEDICARE, BC, SELFPAY ==
[2024-10-04 10:42] VITALS: BP 119/57; PULSE 65; RESP 18; TEMP 36.6; O2SAT 98
[2024-10-04 11:10] VITALS: O2SAT 99
[2024-10-04 11:20] VITALS: O2SAT 95
--- NOTE | 2024-10-04 11:22 | PDOC.PAIN ---
Date of service: 10/04/24 Time of Service: 11:22 Pain Managment Procedure Note Procedure Note Procedure Note: PROCEDURE NOTE LEFT INTRA-ARTICULAR SHOULDER JOINT INJECTION/DILATION Date of Service: October 04, 2024 Patient:Sharon Hamm? Provider:? Justus Jiang DO, MPH Sharon Buchanan has been referred to the [facility] for LEFT intra-articular shoulder joint injection. Pre-operative diagnosis: Left shoulder Osteoarthritis ICD-10 M19.012 Post-operative diagnosis: Same Pre-Procedure Pain: VAS= 8/10 COMMENTS: She last had this procedure in October 2023 with >9 months of >50% pain relief. Raulwas interviewed and the medical record was reviewed.? There were no medical, pharmacologic, radiographic or other structural contraindications to attempting fluoroscopically guided LEFT intra-articular shoulder joint injection.? Risks and expected side effects as well as potential benefit of the procedure were reviewed with Sharon, and voiced concerns were addressed.? The printed consent form was signed.? Standard time-out procedure was performed. Sharon was placed in the supine position on the fluoroscopy table with pulse oximeter applied. The skin entry point for approaching superior aspect of the anterior LEFT shoulder joint was identified under the most advantageous fluoroscopic view and marked. Following thorough Chlorhexadine preparation of the skin and draping, 1% lidocaine infiltration of the skin entry point and subcutaneous tissues was accomplished. Next a 25 gauge 1.5 inch skin needle was placed under fluoroscopic guidance into the LEFT shoulder joint. Intra-articular placement was confirmed by a clear arthrogram resulting from the injection of 1 ml Omnipaque 240. 5 ml of 1% Lidocaine and 80mg Depo-Medrol was injected intra-articularily with an initial reproduction of a significant component of the usual pain. I then injected 20 cc of Normal Saline. The needle was then removed without difficulty. (49 ml of Omnipaque was wasted). There was no unusual discomfort expressed by Sharon. The needle was withdrawn without difficulty. Sharon was observed and was without hemodynamic, neurologic, or allergic reactions.? Fluoroscopic images were digitally archived. Sharon's vital signs were stable throughout the procedure and were as recorded in the docflowsheet by the nursing staff. If given, dosages of intravenous drugs for anxiolysis and analgesia were documented in MAR. Follow up plans and appointments were discussed with Sharon. Post procedure instruction was given as documented in nursing documentation and having met discharge criteria, [facility] COMMENTS: No apparent complications. Post-procedure pain: VAS= 0/10. Sharon to contact [facility] as needed. If at least 50% improvement in pain and/or function for at least 3 months is achieved, this procedure can be repeated. I personally completed the entire procedure. JUSTUS JIANG DO, MPH [employer]BP[employer] - Subspecialty board certification in Pain Medicine [facility]
--- NOTE | 2024-10-04 11:23 | DI.RAD_ITS ---
Exam(s) XR PAIN CLINIC FLUORO JOINT IN EXAM: XR PAIN CLINIC FLUORO JOINT IN CLINICAL HISTORY: DX: Left Shoulder Osteoarthritis TECHNIQUE: 2D and realtime digital imaging was performed. CONTRAST MATERIAL: Refer to procedure report. COMPARISON: No exams were available for comparison FINDINGS: Fluoroscopy was provided for Dr. Jiang during the performance of a left shoulder injection. Please r efer to the procedure report for complete details. Ka,r=2.14 mGy IMPRESSION: RADIATION DOSE DELIVERED: 0.0 0.0 0
[2024-10-04] MEDS: Nerve Block Tray 1 EACH MC (11:28)
[2024-10-04] MEDS: Omnipaque 240 MG/ML 50 ML BTL IJ (11:29)
[2024-10-04] MEDS: methylPREDNISolone ACETATE 80 MG/ML VIAL IJ (11:29)
[2024-10-04] MEDS: Normal Saline 20 ML VIAL 10 ML IJ (11:29)
== END 2024-10-04 10:33 | disposition home or self-care (01) ==
LOC: PC 10:32
PROVIDERS: PCP Nurse Practitioner Family; Visit Provider Preventive Medicine Occupational Medicine
DX: M25.512 Pain in left shoulder (principal); M19.012 Primary osteoarthritis, left shoulder
CPT/HCPCS: 20610; 77002; J1010; Q9967

== ENCOUNTER 2024-10-29 01:35 | Outpatient (CLI) | payer MEDICARE, BC, SELFPAY ==
--- NOTE | 2024-10-29 07:00 | DI.MAMMO_ITS ---
Exam(s) MAMMO SCREENING EXAM: MAMMO SCREENING CLINICAL HISTORY: screening,Z12.39. TECHNIQUE: Bilateral full field digital CC and MLO mammographic images were obtained with 3D tomosyn thesis and utilizing computer aided detection (CAD). COMPARISON: None. Last mammogram was at outside institution 2012. FINDINGS: No CAD designations. There are no significant focal findings in the right breast. In the left breast there is an asymmetric density-possible nodule located 4 cm in from the nipple on the CC view measuring approximately 7 x 5 mm. There are no malignant-appearing microcalcification groups is region or elsewhere in either breast There is no significant architectural distortion nor skin thickening-retraction. IMPRESSION: 1. No radiographic evidence of malignancy in the right breast. 2. There is a 7 x 5 mm nodule in the left breast as described above. Spot compression view and ultra sound recommended. BI-RADS Category 0 - Incomplete: Need additional imaging evaluation Breast Density - Category B - Scattered areas of fibroglandular density Breast density Category C or D implies that the patient has dense breast tissue. Dense breast tissue can make it harder to find cancer on a mammogram. Dense breast tissue is also associated with an incr eased risk of breast cancer. This information about the result of the mammogram report was provided to the patient to raise their awareness. Use this report when you speak with the patient about their risks for breast cancer, which includes their family history. At that time, you may recommend additional screening tests (Ultrasoun d or MRI) as these tests may add significant information. A negative radiographic report should not delay biopsy if a dominant or clinically suspicious mass is present. Up to ten percent of cancers are not identified on mammography. A negative report may reinforce clinical impression. Adenosis and dense breasts may obscure an underlying neoplasm. False positive reports average 6 to 10%. Patient will receive a letter notifying them of these results.
== END 2024-10-29 01:55 ==
LOC: DI 01:35
PROVIDERS: PCP Nurse Practitioner Family; Visit Provider Nurse Practitioner Family
DX: Z12.31 Encounter for screening mammogram for malignant neoplasm of breast (principal); R92.323 Mammographic fibroglandular density, bilateral breasts
CPT/HCPCS: 77063; 77067

== ENCOUNTER 2024-11-15 00:15 | Outpatient (CLI) | payer MEDICARE, BC, SELFPAY ==
--- NOTE | 2024-11-15 08:06 | DI.DEXA_ITS ---
Exam(s) XR DEXA BONE DENSITY W/WO STORMY EXAM: XR DEXA BONE DENSITY W/WO STORMY CLINICAL HISTORY: osteopenia,abnl bone density screening,sacral fx,m85.89,r93.7,s32.19xs TECHNIQUE: Hologic Horizon C densitometer analysis of left hip, lumbar spine and right forearm. La teral survey image of the thoracic and lumbar spine. COMPARISON: MR MR LUMBAR SPINE WO from 04/19/2023 FINDINGS: Lateral view of the thoracic and lumbar spine shows no evidence of compression fractures. There ar e degenerative disc changes and large endplate osteophytes which could elevate the bone mineral dens ity measurements of the spine. Bone mineral density measurements of the lumbar spine correspond to a total T-score of 2.6, in the normal range. Bone mineral density measurements of the left hip correspond to a total T-score of -1.8. The femora l neck T-score is -2.2, in the osteopenic range.. Theright forearm bone mineral density measurements correspond to a T-score of the distal 3rd of -1.5 , in the osteopenic range.. IMPRESSION: Osteopenia of the hip and forearm. Normal bone mineral density of the spine.
== END 2024-11-15 00:35 ==
LOC: DI 00:15
PROVIDERS: PCP Nurse Practitioner Family; Visit Provider Nurse Practitioner Family
DX: M81.0 Age-related osteoporosis without current pathological fracture (principal)
CPT/HCPCS: 77080

== ENCOUNTER 2025-01-16 02:00 | Outpatient (CLI) | payer MEDICARE, BC, SELFPAY ==
--- NOTE | 2025-01-16 07:15 | DI.RAD_ITS ---
Exam(s) XR FOOT LT COMPLETE EXAM: XR FOOT LT COMPLETE CLINICAL HISTORY: Left foot pain,M79.672. TECHNIQUE: 2D digital imaging was performed of the left foot. Three images were obtained. AP, obli que and lateral views were obtained. COMPARISON: CR XR FOOT RT COMPLETE from 01/16/2025 FINDINGS: BONES: No acute fracture is present. No bony destructive lesion is seen. There is a small enthesophyt e at the posterior calcaneus. There is a small plantar calcaneal spur. JOINTS: No dislocation present. There are degenerative changes seen in the left foot most marked in t he 1st metatarsophalangeal joint where there is joint space narrowing and osteophytes. SOFT TISSUE: Normal. IMPRESSION: Arthrosis of the left foot particularly at the 1st MTP joint. DATA REPOSITORY: RADIATION DOSE DELIVERED:
--- NOTE | 2025-01-16 07:15 | DI.RAD_ITS ---
Exam(s) XR FOOT RT COMPLETE EXAM: XR FOOT RT COMPLETE CLINICAL HISTORY: Right foot pain,M79.671. TECHNIQUE: 2D digital imaging was performed of the right foot. Three images were obtained. AP, obl ique and lateral views were obtained. COMPARISON: CR RIGHT FOOT COMPLETE from 12/31/2015 FINDINGS: BONES: No acute fracture is present. No bony destructive lesion is seen. There is a small plantar radha caneal spur. JOINTS: No dislocation present. There is marked osteoarthritis of the 1st MTP joint characterized by joint space narrowing and osteophytes. There is a prominent osteophyte at the dorsum of the head of the 1st metatarsal. There are degenerative changes elsewhere in the right foot. SOFT TISSUE: Normal. IMPRESSION: Marked arthrosis seen at the 1st MTP joint. DATA REPOSITORY: RADIATION DOSE DELIVERED:
== END 2025-01-16 02:20 ==
LOC: DI 02:00
PROVIDERS: PCP Nurse Practitioner Family; Visit Provider Podiatrist
DX: M79.671 Pain in right foot (principal); M79.672 Pain in left foot; M19.071 Primary osteoarthritis, right ankle and foot; M19.072 Primary osteoarthritis, left ankle and foot; L84 Corns and callosities; R26.89 Other abnormalities of gait and mobility; L60.0 Ingrowing nail; Q66.71 Congenital pes cavus, right foot; Q66.72 Congenital pes cavus, left foot; L85.8 Other specified epidermal thickening; G61.81 Chronic inflammatory demyelinating polyneuritis
CPT/HCPCS: 11055; 99214; 73630

== ENCOUNTER 2025-03-12 17:49 | Outpatient (REF) | payer MEDICARE, BC, SELFPAY ==
[2025-03-12 21:04] LABS: Creatinine,Urine 39.44 mg/dL
[2025-03-12 21:08] LABS: Creatinine,24hr Ur 0.99 g/24hr (0.60-1.80); Total Volume 2500 ml
[2025-03-13 09:54] LABS: Calcium Urine 9.6 mg/dL (See Note); Calcium Urine 24 hr 240 mg/24hr (100-300); Timed Urine Volume 2500 mL
== END 2025-03-12 17:50 | disposition home or self-care (01) ==
LOC: LBN 17:49
PROVIDERS: PCP Nurse Practitioner Family; Visit Provider Internal Medicine Endocrinology, Diabetes & Metabolism
DX: M81.0 Age-related osteoporosis without current pathological fracture (principal)
CPT/HCPCS: 81050; 82340; 82570

== ENCOUNTER 2025-06-14 10:13 | Emergency (ER) | payer MEDICARE, BC, SELFPAY ==
[2025-06-14 10:16] VITALS: BP 152/85; PULSE 84; RESP 16; TEMP 36.9; O2SAT 98
--- NOTE | 2025-06-14 11:26 | DI.RAD_ITS ---
Exam(s) XR ANKLE LT COMPLETE EXAM: XR ANKLE LT COMPLETE CLINICAL HISTORY: L ankle pain TECHNIQUE: 2D digital imaging was performed. Three views. COMPARISON: No exams were available for comparison FINDINGS: BONES: No acute fracture is present. No bony destructive lesion is seen. Plantar calcaneal spur. JOINTS:The ankle mortise is normally aligned. Mild degenerative changes at the ankle. SOFT TISSUE: Mild vascular calcifications. IMPRESSION: No acute abnormality. DATA REPOSITORY: RADIATION DOSE DELIVERED:
--- NOTE | 2025-06-14 11:48 | W.ED.GENAD ---
Discharge Plan Disposition Patient Disposition: Home Condition: Stable Discharge Details Clinical Impression: Sprain of left ankle Primary Care Provider: Zenobia Cota ED Provider: Harley Orlando Home Meds and New Rx's Prescriptions: Continued atorvastatin 10 mg tablet 5 mg PO DAILY Qty: 90 3RF Premarin 0.625 mg/gram cream 0.3125 mg vaginal .weekly Rx Instructions: off 5 days; repeat cycle omeprazole 20 mg tablet,delayed release (DR/EC) 20 mg PO DAILY Patient Comments: prn acetaminophen 500 mg tablet 500 mg PO Q6H PRN (Reason: pain) Patient Comments: prn mecobalamin (vitamin B12) 1,000 mcg tablet,chewable 2,000 mcg PO DAILY cholecalciferol (vitamin D3) 125 mcg (5,000 unit) capsule 125 mcg PO DAILY calcium carbonate 600 mg calcium (1,500 mg) tablet 1,200 mg PO DAILY tramadol 50 mg tablet 100 mg PO BID PRN (Reason: pain) Qty: 112 2RF magnesium 250 mg tablet 500 mg PO DAILY levothyroxine 50 mcg tablet 50 mcg PO DAILY Qty: 90 3RF trazodone 100 mg tablet See Rx Instructions .ROUTE .COMPLEX Qty: 135 1RF Dose Instruction: TAKE ONE AND ONE-HALF TABLETS BY MOUTH AT BEDTIME Rx Instructions: TAKE ONE AND ONE-HALF TABLETS BY MOUTH AT BEDTIME Discharge Instructions Instructions: Ankle Sprain ED Additional Instructions: You were seen in the emergency department sprain of your left ankle, there is no fracture on x-ray, please rest, ice, compress and elevate the ankle often over the next few days. Take Tylenol and ibuprofen as needed for pain, follow-up with orthopedics for persistent pain lasting longer than 2 to 3 weeks. Return to the emergency department any emergent concerns Referrals: Zenobia Cota APRN [Primary Care Provider, Family Practice] Discharge Data Discharge Date/Time-TO BE ENTERED AT DEPARTURE: 06/14/25 12:10 HPI General Date/Time Provider Initiated Documentation: 06/14/25 10:27. HPI Narrative: 75 year-old female presents to ED today by POV/ambulating with antalgic gait with a chief complaint of L inner ankle pain with onset starting 3 days ago with normal activity. Quality described as L ankle pain, has known osteoporosis and concern about fracture. Patient is R-foot dominant, no radiation to gross deformity, bruising, redness, swelling, warmth to touch, proximal calf pain, numbness/tingling. Severity is described as moderate. Palliating factors include has an ankle brace. Provoking factors include nothing specific. Patient not anticoagulated. Related Data Home Medications ?Medication ?Instructions ?Recorded ?Confirmed magnesium 250 mg tablet 500 mg PO DAILY 06/26/21 06/14/25 conjugated estrogens 0.625 mg/gram 0.3125 mg vaginal .weekly 11/16/21 06/14/25 vaginal cream (Premarin) omeprazole 20 mg tablet,delayed 20 mg PO DAILY 05/11/24 06/14/25 release levothyroxine 50 mcg tablet 50 mcg PO DAILY #90 tabs 06/27/24 06/14/25 acetaminophen 500 mg tablet 500 mg PO Q6H PRN pain 08/30/24 06/14/25 atorvastatin 10 mg tablet 5 mg (1/2 x 10 mg) PO DAILY #90 12/05/24 06/14/25 tabs trazodone 100 mg tablet See Rx Instructions .Route 01/14/25 06/14/25 .COMPLEX #135 tabs calcium carbonate 1,200 mg PO DAILY 04/09/25 06/14/25 cholecalciferol (vitamin D3) 125 125 mcg PO DAILY 04/09/25 06/14/25 mcg (5,000 unit) capsule mecobalamin (vitamin B12) 1,000 2,000 mcg PO DAILY 04/09/25 06/14/25 mcg chewable tablet tramadol 50 mg tablet 100 mg (2 x 50 mg) PO BID PRN pain 04/09/25 06/14/25 #112 tabs Previous Rx's ?Medication ?Instructions ?Recorded levothyroxine 50 mcg tablet 50 mcg PO DAILY #90 tabs 06/27/24 atorvastatin 10 mg tablet 5 mg (1/2 x 10 mg) PO DAILY #90 12/05/24 tabs trazodone 100 mg tablet See Rx Instructions .Route 01/14/25 .COMPLEX #135 tabs tramadol 50 mg tablet 100 mg (2 x 50 mg) PO BID PRN pain 04/09/25 #112 tabs Allergies Allergy/AdvReac Type Severity Reaction Status Date / Time gabapentin Allergy Intermediate rash Verified 06/14/25 10:20 hydrocodone bitartrate (From Allergy Intermediate Hives Verified 06/14/25 10:20 Vicodin) General Stated Complaint: Orthopedic KARIME: 4 Review of Systems All systems reviewed & are unremarkable except as noted in HPI and below Exam Narrative Exam Narrative: GENERAL APPEARANCE: Well-nourished, non-toxic, awake and alert, atraumatic, no acute distress. SKIN: Warm, pink, dry, intact, without rashes/lesions/ulcerations. HEAD: Normocephalic, atraumatic, normal hair distribution for gender/age. EYES: Normal conjunctiva, no exudates on lids/lashes. ENT: Nares patent, no circumoral cyanosis, no facial swelling NECK: Supple, trachea midline, painless cervical ROM. LUNGS/CHEST: Lungs CTA bilaterally, non-labored respirations, normal A/P diameter, symmetrical expansion, no chest wall deformity HEART (CV/PV): Regular rate and rhythm without murmur, no peripheral edema, no JVD. ABDOMEN: Soft, non-distended, no guarding. MSK: Normal ROM, no swelling/deformity to bilateral UEs or LEs, moving all extremities without weakness, no cyanosis, spine midline without tenderness, normal curvature. NEURO: Mental Status AAOx4 - alert to person, place, time, events No facial droop, no forehead involvement. Motor: No focal weakness - strength 5/5 in bilateral UEs and LEs, proximal and distal, symmetric. Sensory: sensation intact to light touch globally. Gait normal: patient ambulated without ataxia into ED room. PSYCH: euthymic, cooperative, pleasant, appropriate speech Course Vital Signs Vital signs: Vital Signs Temperature 36.9 C 06/14/25 10:16 Pulse 84 06/14/25 10:16 Respiratory Rate 16 06/14/25 10:16 Blood Pressure 152/85 H 06/14/25 10:16 Pulse Oximetry 98 06/14/25 10:16 Temperature 36.9 C 06/14/25 10:16 Temperature Source Temporal Artery Scan 06/14/25 10:16 Pulse 84 06/14/25 10:16 Respiratory Rate 16 06/14/25 10:16 Blood Pressure 152/85 H 06/14/25 10:16 Blood Pressure Position Sitting 06/14/25 10:16 Pulse Oximetry 98 06/14/25 10:16 Oxygen Delivery Method Room Air 06/14/25 10:16 Oxygen Flow Rate 0 06/14/25 10:16 Pain Level 7 06/14/25 10:16 Medical Decision Making This dictation utilizes [id number] dictation software and may contain unedited grammatical errors. 75 year-old female presents to ED today by POV/ambulating with antalgic gait with a chief complaint of L inner ankle pain with onset starting 3 days ago with normal activity. Quality described as L ankle pain, has known osteoporosis and concern about fracture. Patient is R-foot dominant, no radiation to gross deformity, bruising, redness, swelling, warmth to touch, proximal calf pain, numbness/tingling. Severity is described as moderate. Palliating factors include has an ankle brace. Provoking factors include nothing specific. Patients' medical history: Chronic low back pain, neck pain, paresthesias of bilateral legs, lumbar radiculopathy, sacral foraminal stenosis, history of left foot pain. Family and social history: noncontributory. Pertinent exam findings / vital signs include mild tenderness just anterior to the medial malleolus without crepitus, swelling, ecchymosis, warmth to touch, sensation intact distal, left dorsalis pedis pulse 2+. Differential / pathologies of concern include ankle sprain. Diagnostic studies of: - XR L ankle-no acute fracture seen. ED Course/Assessment/Plan: - Recommend continuation of her bracing as well as RICE therapy and therapy [place] Tylenol and ibuprofen, follow-up with orthopedics if pain persist for 2 weeks. Findings not consistent with fracture, NV compromise. Disposition of Sprain of Left Ankle. Patient verbalized understanding of the plan and return to ED criteria and engaged in shared decision making. Medical Records Medical records reviewed: Yes I reviewed the patient's medical records. Imaging Data Radiologic Study: Attestation: I personally reviewed and interpreted this imaging study as follows: Imaging: X-Ray Radiologist's impression: EXAM: XR ANKLE LT COMPLETE CLINICAL HISTORY: L ankle pain TECHNIQUE: 2D digital imaging was performed. Three views. COMPARISON: No exams were available for comparison FINDINGS: BONES: No acute fracture is present. No bony destructive lesion is seen. Plantar calcaneal spur. JOINTS:The ankle mortise is normally aligned. Mild degenerative changes at the ankle. SOFT TISSUE: Mild vascular calcifications. IMPRESSION: No acute abnormality. Quality:SDOH Health Related Social Needs: Health related social needs details N/A PFSH All Active Problems (Updated 06/14/25 @ 11:49 by LOLI Nicholas) Sprain of left ankle (Acute) Tick bite (Acute) Severe osteopetrosis (Acute) Corns and callosities (Acute) Congenital bilateral pes cavus (Acute) Ingrown toenail (Acute) Hammertoe of left foot (Acute) Balance problem (Acute) Foot pain, bilateral (Acute) Breast nodule (Acute) Screening breast examination (Acute) Osteoarthritis of carpometacarpal joint of right thumb (Acute) Cubital tunnel syndrome on right (Acute) Sacral fracture (Acute) Chronic diarrhea (Acute) Subchondral cyst (Acute) Pain in right hand (Acute) History of COVID-19 (Acute) Pain of left hip joint (Acute) Pain, joint, shoulder, left (Acute) Screening for malignant neoplasm of breast (Acute) Thyroid function test abnormal (Acute) Paresthesia (Acute) Sleep disorder (Acute) Abnormal bone density screening (Acute) Disorder of sacrum (Acute) Low back pain (Acute) Spondylosis without myelopathy (Acute) Atrophic vaginitis (Acute) Herniation of rectum into vagina (Acute) Diverticula of intestine (Acute) First degree atrioventricular block (Acute) Polyneuropathy (Acute) Lesion of ulnar nerve (Acute) Anxiety (Chronic) Lumbosacral spondylosis without myelopathy (Acute) DJD (degenerative joint disease) (Chronic) severe back issues RH Hyperlipidemia, unspecified (Acute) Bipolar disorder, unspecified (Acute) Obsessive-compulsive disorder, unspecified (Acute) PTSD (post-traumatic stress disorder) (Acute) Osteopenia (Acute) Syncope and collapse (Acute) Bradycardia (Acute) Lumbar stenosis (Acute) Lumbosacral spondylosis without myelopathy (Acute) Neurogenic claudication due to lumbar spinal stenosis (Acute) Medical History Sebaceous cyst Benign cyst of left breast Sprain and strain of other specified sites of shoulder and upper arm Ulnar neuropathy Tremor Hemorrhoids Diverticulitis Spinal stenosis Vaginitis Toe pain Abnormal thyroid stimulating hormone (TSH) level Sleep disturbance Bilateral calf pain Neck pain Chronic low back pain Paresthesia of bilateral legs Lumbar radiculopathy Sacral foraminal stenosis Urinary frequency Constipation Bitten or stung by nonvenomous insect and other nonvenomous arthropods, initial encounter Situational anxiety Left foot pain Left shoulder pain 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) Basal cell carcinoma Surgical History Hx of oral surgery 2013 H/O colonoscopy 2013 [facility] [place] [place] normal; Steve Rebolledo MD Tendon Transplant or Transfer R hand R wrist fracture R ankle fx Fracture, Open Treatment plate L arm Family History Father , at 81 Scleroderma Raynauds syndrome Stroke Hypertension Prostate cancer Mother Scleroderma Sister Hypothyroid Cardiomegaly Son ADD (attention deficit disorder) Bipolar 1 disorder Son , Drowned 1998 age 26 No problems noted. Maternal Grandmother Breast cancer Paternal Uncle Diabetes Social History Smoking/Tobacco Use Status: Never Second Hand Exposure: Yes Smoking risk assessment performed?: Yes Alcohol Intake: current Alcohol Intake frequency: a few times a month Alcohol type: beer Drug use: Occasionally Substance use type: marijuana Details: Marijuana 1-2 times weekly. Last taken yesterday, edible. Adopted: No Caregiver/Support person: No Foster care: No Household members: significant other Housing: house Number of Children: 3 number of grandchildren: 8 Communication Needs: None Education Level: college Details: [employer] Degree Do you need help understanding health information?: Rarely current occupation: Retired Pets and animals: Yes (1) Pets and animals: dog(s) Sexually active: Yes Do you think of yourself as: straight/heterosexual Current gender identity: female What is your relationship status?: refused to answer How often do you talk on the phone with friends or family?: once per week How often do you get together with friends or relatives?: once per week How often do you attend jewish or zoroastrian services?: decline to answer Do you belong to any clubs or organized social groups?: no Panel score (0-1 are the most socially isolated patients): 0 What type of physical activity do you participate in: walking and swimming Duration: 30-45 minutes/day Frequency: 3-4 times per week Alesia/Anglican: None Seatbelt use: always Helmet use: Yes (No reason) Helmet use: never Drive intox or ride w/intox auto transport driver: No Do you feel safe at home: Yes Do you feel safe in your relationship?: Yes
== END 2025-06-14 12:10 | disposition home or self-care (01) ==
PROVIDERS: Emergency Provider Physician Assistant; PCP Nurse Practitioner Family
DX: S93.402A Sprain of unspecified ligament of left ankle, initial encounter (principal); X58.XXXA Exposure to other specified factors, initial encounter
CPT/HCPCS: 99283 ×2; 73610

== ENCOUNTER 2025-07-02 12:03 | Outpatient (CLI) | payer MEDICARE, BC, SELFPAY ==
--- NOTE | 2025-07-02 10:52 | DI.RAD_ITS ---
Exam(s) XR FOOT LT COMPLETE EXAM: XR FOOT LT COMPLETE CLINICAL HISTORY: M79.672 Lt foot pain, rule out fracture. TECHNIQUE: 2D digital imaging was performed. Three views. COMPARISON: CR XR FOOT LT COMPLETE from 01/16/2025 FINDINGS: BONES: No acute fracture is present. No bony destructive lesion is seen. Small plantar calcaneal spur. JOINTS: No dislocation present. Severe narrowing of the 1st MTP joint. Hammertoe deformities of the 2nd through 4th toes. SOFT TISSUE: Normal. IMPRESSION: Advanced degenerative changes of the 1st MTP joint. Hammertoe deformities. No fracture is visible. DATA REPOSITORY: RADIATION DOSE DELIVERED:
== END 2025-07-02 12:23 ==
LOC: DI 12:04
PROVIDERS: PCP Nurse Practitioner Family; Visit Provider Nurse Practitioner Family
DX: M79.672 Pain in left foot (principal)
CPT/HCPCS: 73630

== ENCOUNTER 2025-07-15 16:26 | Outpatient (REF) | payer MEDICARE, BC, SELFPAY ==
[2025-07-16 10:27] LABS: Lyme Ab w Rflx to Lyme Confirm Negative (Negative)
== END 2025-07-15 16:27 | disposition home or self-care (01) ==
LOC: NCHCN 16:26
PROVIDERS: PCP Nurse Practitioner Family; Visit Provider Nurse Practitioner Family
DX: S20.461D Insect bite (nonvenomous) of right back wall of thorax, subsequent encounter (principal); W57.XXXD Bitten or stung by nonvenomous insect and other nonvenomous arthropods, subsequent encounter
CPT/HCPCS: 86618

== ENCOUNTER 2025-08-13 10:21 | Emergency (ER) | payer MEDICARE, BC, SELFPAY ==
[2025-08-13 10:24] VITALS: BP 126/75; PULSE 78; RESP 18; TEMP 36.8; O2SAT 97
--- NOTE | 2025-08-13 10:30 | DI.RAD_ITS ---
Exam(s) XR LUMBAR SPINE COMPLETE EXAM: XR LUMBAR SPINE COMPLETE CLINICAL HISTORY: Fall, pain. TECHNIQUE: 2D digital imaging was performed. Five views. COMPARISON: CT CT PELVIC WO from 06/16/2023 CR XR DEXA BONE DENSITY W/WO STORMY from 11/15/2024 FINDINGS: BONES: No fracture or destructive lesion. Vertebral body heights are maintained. Facet degenerative changes greatest at L5-S1 where there is mild spondylolisthesis, unchanged from 2022 CT. DISKS: Disc space narrowing noted at all levels. Prominent endplate osteophytes. ALIGNMENT: degenerative scoliosis. Stable mild L5-S1 spondylolisthesis. SOFT TISSUE: Normal vascular calcifications. IMPRESSION: Advanced degenerative changes. No acute abnormality. DATA REPOSITORY: RADIATION DOSE DELIVERED:
--- NOTE | 2025-08-13 10:42 | W.ED.GENAD ---
Discharge Plan Disposition Patient Disposition: Home Condition: Stable Discharge Details Clinical Impression: Acute myofascial strain of lumbar region Primary Care Provider: Zenobia Cota ED Provider: Radha Madrid Home Meds and New Rx's Prescriptions: Continued atorvastatin 10 mg tablet 5 mg PO DAILY Qty: 90 3RF Premarin 0.625 mg/gram cream 0.3125 mg vaginal .weekly Rx Instructions: off 5 days; repeat cycle omeprazole 20 mg tablet,delayed release (DR/EC) 20 mg PO DAILY PRN Patient Comments: prn acetaminophen 500 mg tablet 500 mg PO Q6H PRN (Reason: pain) Patient Comments: prn mecobalamin (vitamin B12) 1,000 mcg tablet,chewable 2,000 mcg PO DAILY cholecalciferol (vitamin D3) 125 mcg (5,000 unit) capsule 125 mcg PO DAILY calcium carbonate 600 mg calcium (1,500 mg) tablet 1,200 mg PO DAILY tramadol 50 mg tablet 100 mg PO BID PRN (Reason: pain) Qty: 112 2RF levothyroxine 50 mcg tablet 50 mcg PO DAILY Qty: 90 3RF magnesium 250 mg tablet 500 mg PO DAILY trazodone 100 mg tablet See Rx Instructions .ROUTE .COMPLEX Qty: 135 1RF Dose Instruction: TAKE ONE AND ONE-HALF TABLETS BY MOUTH AT BEDTIME Rx Instructions: TAKE ONE AND ONE-HALF TABLETS BY MOUTH AT BEDTIME Discharge Instructions Instructions: Low Back Pain ED, Muscle Strain ED Additional Instructions: No evidence of acute fracture noted on the x-rays. You do have some degenerative changes which are unchanged from the CT you had in 2022. You may alternate ice and heat, you may get lidocaine patches [id number] and use them as directed. Follow up with primary care provider in 3-5 days. Return to ED sooner if any worsening loss of bowel or bladder control, radiating pain down your legs, weakness in your legs, numbness in your groin area or concerns. Please take Tylenol or Ibuprofen with food every 4-6 hours as needed for pain and swelling. Thank you for allowing us to care for you today. Referrals: Zenobia Cota APRN [Primary Care Provider, Family Practice] - 1 week Referral Note: ER follow-up, call for an appointment Clinical Impression: Acute myofascial strain of lumbar region HPI General Mode of arrival: ambulatory. Date/Time Provider Initiated Documentation: 08/13/25 10:29. Limitations to Documentation: no limitations. Information obtained by: patient, RN notes reviewed and old records reviewed. HPI Narrative: 75-year-old female presents to the ER with a chief complaint of right lower lumbar back pain after falling off a 3 foot stepladder on Tuesday. Patient states she fell backwards hitting the side of a chair and landed on the ground. Does have a back brace on and is walking with a cane. She reports stabbing pain which goes into her right thigh. She denies any loss of bowel or bladder control any saddle anesthesia or numbness. She denies any chest pain or shortness of breath. Did not hit her head no reports of loss of consciousness. She does have a history of back problems and takes tramadol for chronic pain which she did take prior to arrival. Related Data Home Medications ?Medication ?Instructions ?Recorded ?Confirmed magnesium 250 mg tablet 500 mg PO DAILY 06/26/21 08/13/25 conjugated estrogens 0.625 mg/gram 0.3125 mg vaginal .weekly 11/16/21 08/13/25 vaginal cream (Premarin) acetaminophen 500 mg tablet 500 mg PO Q6H PRN pain 08/30/24 08/13/25 atorvastatin 10 mg tablet 5 mg (1/2 x 10 mg) PO DAILY #90 12/05/24 08/13/25 tabs calcium carbonate 1,200 mg PO DAILY 04/09/25 08/13/25 cholecalciferol (vitamin D3) 125 125 mcg PO DAILY 04/09/25 08/13/25 mcg (5,000 unit) capsule mecobalamin (vitamin B12) 1,000 2,000 mcg PO DAILY 04/09/25 08/13/25 mcg chewable tablet tramadol 50 mg tablet 100 mg (2 x 50 mg) PO BID PRN pain 04/09/25 08/13/25 #112 tabs levothyroxine 50 mcg tablet 50 mcg PO DAILY #90 tabs 07/02/25 08/13/25 omeprazole 20 mg tablet,delayed 20 mg PO DAILY PRN 07/02/25 08/13/25 release trazodone 100 mg tablet See Rx Instructions .Route 07/04/25 08/13/25 .COMPLEX #135 tabs Previous Rx's ?Medication ?Instructions ?Recorded atorvastatin 10 mg tablet 5 mg (1/2 x 10 mg) PO DAILY #90 12/05/24 tabs tramadol 50 mg tablet 100 mg (2 x 50 mg) PO BID PRN pain 04/09/25 #112 tabs levothyroxine 50 mcg tablet 50 mcg PO DAILY #90 tabs 07/02/25 trazodone 100 mg tablet See Rx Instructions .Route 07/04/25 .COMPLEX #135 tabs Allergies Allergy/AdvReac Type Severity Reaction Status Date / Time gabapentin Allergy Intermediate rash Verified 08/13/25 10:26 hydrocodone bitartrate (From Allergy Intermediate Hives Verified 08/13/25 10:26 Vicodin) General Stated Complaint: Orthopedic KARIME: 4 Review of Systems All systems reviewed & are unremarkable except as noted in HPI and below Musculoskeletal Musculoskeletal: Reports as per HPI and Reports back pain Exam Narrative Exam Narrative: Constitutional: Alert and oriented x3. Appears stated age. Normal body habitus. Head: Normocephalic, no trauma. Eyes: Pupils PERRL, Red reflex noted, EOM's intact. Eyelids symmetrical without lesions, discharge, or swelling. ENT: Bilateral TM's WNL, External ear normal to inspection, no mastoid TTP, swelling, or erythema, Nasal turbinates WNL, no nasal discharge. Normal dentition, Posterior pharynx WNL, no exudate. Chest: RRR, Normal S1, S2, distal pulses intact. Resp: Lungs clear to auscultation bilaterally, no wheezes, rales, or rhonchi. Abdomen: Soft, non-distended, Normoactive bowel sounds all 4 quads. Musculoskeletal: Normal gait, Moves all 4 extremities without difficulty. Skin: No suspicious rashes or lesions. Capillary refill less than 2 sec. Neurologic: Cranial nerves II-XII intact. Alert and oriented x 3. Motor: No deficits noted. Sensory: Intact bilaterally all 4 extremities. Hematologic/Lymphatic: No ecchymosis, no lymphadenopathy. Course Vital Signs Vital signs: Vital Signs Temperature 36.8 C 08/13/25 10:24 Pulse 78 08/13/25 10:24 Respiratory Rate 18 08/13/25 10:24 Blood Pressure 126/75 08/13/25 10:24 Pulse Oximetry 97 08/13/25 10:24 Temperature 36.8 C 08/13/25 10:24 Temperature Source Oral 08/13/25 10:24 Pulse 78 08/13/25 10:24 Respiratory Rate 18 08/13/25 10:24 Blood Pressure 126/75 08/13/25 10:24 Pulse Oximetry 97 08/13/25 10:24 Oxygen Delivery Method Room Air 08/13/25 10:24 Oxygen Flow Rate 0 08/13/25 10:24 Medical Decision Making 75-year-old female presents to the ER with a chief complaint of right lower lumbar back pain after falling off a 3 foot stepladder on Tuesday. Patient states she fell backwards hitting the side of a chair and landed on the ground. Does have a back brace on and is walking with a cane. She reports stabbing pain which goes into her right thigh. She denies any loss of bowel or bladder control any saddle anesthesia or numbness. She denies any chest pain or shortness of breath. Did not hit her head no reports of loss of consciousness. X-ray L-spine ordered and lidocaine patch. No evidence of acute fracture does show some degenerative changes no change from CT of 2022. Will discharge home with lidocaine patch prescription and strict return instructions and follow-up care. This text was generated using [employer] dictation system, please disregard any oddities of phrase or misspellings. Imaging Data Radiologic Study: Imaging: X-Ray Radiologist's impression: FINDINGS: BONES: No fracture or destructive lesion. Vertebral body heights are maintained. Facet degenerative changes greatest at L5-S1 where there is mild spondylolisthesis, unchanged from [address]22 CT. DISKS: Disc space narrowing noted at all levels. Prominent endplate osteophytes. ALIGNMENT: degenerative scoliosis. Stable mild L5-S1 spondylolisthesis. SOFT TISSUE: Normal vascular calcifications. IMPRESSION: Advanced degenerative changes. No acute abnormality. Quality:SDOH Health Related Social Needs: Health related social needs details N/A PFSH All Active Problems (Updated 08/13/25 @ 11:32 by Radha Madrid NP) Acute myofascial strain of lumbar region (Acute) Maculopapular rash (Acute) Loose stools (Acute) Hypothyroidism (Chronic) Severe osteopetrosis (Acute) Corns and callosities (Acute) Congenital bilateral pes cavus (Acute) Hammertoe of left foot (Acute) Balance problem (Acute) Foot pain, bilateral (Acute) Breast nodule (Acute) Screening breast examination (Acute) Osteoarthritis of carpometacarpal joint of right thumb (Acute) Cubital tunnel syndrome on right (Acute) Sacral fracture (Acute) Chronic diarrhea (Acute) Subchondral cyst (Acute) Pain in right hand (Acute) Pain of left hip joint (Acute) Pain, joint, shoulder, left (Acute) Paresthesia (Acute) Sleep disorder (Acute) Abnormal bone density screening (Acute) Low back pain (Acute) Atrophic vaginitis (Acute) Herniation of rectum into vagina (Acute) Diverticula of intestine (Acute) First degree atrioventricular block (Acute) Polyneuropathy (Acute) Lesion of ulnar nerve (Acute) Anxiety (Chronic) Lumbosacral spondylosis without myelopathy (Acute) DJD (degenerative joint disease) (Chronic) severe back issues RH Hyperlipidemia, unspecified (Acute) Bipolar disorder, unspecified (Acute) Obsessive-compulsive disorder, unspecified (Acute) PTSD (post-traumatic stress disorder) (Acute) Osteopenia (Acute) Bradycardia (Acute) Lumbar stenosis (Acute) Neurogenic claudication due to lumbar spinal stenosis (Acute) Medical History Tick bite Ingrown toenail History of COVID-19 Screening for malignant neoplasm of breast Thyroid function test abnormal Disorder of sacrum Spondylosis without myelopathy Syncope and collapse Lumbosacral spondylosis without myelopathy Sebaceous cyst Benign cyst of left breast Sprain and strain of other specified sites of shoulder and upper arm Ulnar neuropathy Tremor Hemorrhoids Diverticulitis Spinal stenosis Vaginitis Toe pain Abnormal thyroid stimulating hormone (TSH) level Sleep disturbance Bilateral calf pain Neck pain Chronic low back pain Paresthesia of bilateral legs Lumbar radiculopathy Sacral foraminal stenosis Urinary frequency Constipation Bitten or stung by nonvenomous insect and other nonvenomous arthropods, initial encounter Situational anxiety Left foot pain Left shoulder pain 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) Basal cell carcinoma Surgical History Hx of oral surgery 2013 H/O colonoscopy 2013 [facility] 07/19[facility] [place]. bx normal; Steve Rebolledo MD Tendon Transplant or Transfer R hand R wrist fracture R ankle fx Fracture, Open Treatment plate L arm Family History Father , at 81 Scleroderma Raynauds syndrome Stroke Hypertension Prostate cancer Mother Scleroderma Sister Hypothyroid Cardiomegaly Son ADD (attention deficit disorder) Bipolar 1 disorder Son , Drowned 1998 age 26 No problems noted. Maternal Grandmother Breast cancer Paternal Uncle Diabetes Social History Smoking/Tobacco Use Status: Never Second Hand Exposure: Yes Smoking risk assessment performed?: Yes Alcohol Intake: current Alcohol Intake frequency: a few times a month Alcohol type: beer Drug use: Occasionally Substance use type: marijuana Details: Marijuana 1-2 times weekly. Last taken yesterday, edible. Adopted: No Caregiver/Support person: No Foster care: No Household members: significant other Housing: house Number of Children: 3 number of grandchildren: 8 Communication Needs: None Education Level: college Details: [employer] Degree Do you need help understanding health information?: Rarely current occupation: Retired Pets and animals: Yes (1) Pets and animals: dog(s) Sexually active: Yes Do you think of yourself as: straight/heterosexual Current gender identity: female What is your relationship status?: refused to answer How often do you talk on the phone with friends or family?: once per week How often do you get together with friends or relatives?: once per week How often do you attend sikh or islam services?: decline to answer Do you belong to any clubs or organized social groups?: no Panel score (0-1 are the most socially isolated patients): 0 What type of physical activity do you participate in: walking and swimming Duration: 30-45 minutes/day Frequency: 3-4 times per week Alesia/Buddhism: None Seatbelt use: always Helmet use: Yes (No reason) Helmet use: never Drive intox or ride w/intox local driver: No Do you feel safe at home: Yes Do you feel safe in your relationship?: Yes
[2025-08-13] MEDS: Lidocaine 5% Patch 1 PATCH TP (10:53)
== END 2025-08-13 11:40 | disposition home or self-care (01) ==
LOC: ER 11:40
PROVIDERS: Emergency Provider Registered Nurse Emergency; PCP Nurse Practitioner Family
DX: S39.012A Strain of muscle, fascia and tendon of lower back, initial encounter (principal); W19.XXXA Unspecified fall, initial encounter
CPT/HCPCS: 99283 ×2; 72110

== ENCOUNTER → 2025-08-29 03:45 | Outpatient (CLI) | payer MEDICARE, BC, SELFPAY ==
--- NOTE | 2025-08-29 06:45 | DI.CT_ITS ---
Exam(s) CT PELVIC WO EXAM: CT PELVIC WO CLINICAL HISTORY: pain in R SI joint,s/p fall,disorder si joint,m53.3. TECHNIQUE: Imaging Protocol: Axial computed tomography images with coronal and sagittal reformatted images were created and reviewed CONTRAST MATERIAL: Intravenous: none COMPARISON: CT CT PELVIC WO from 06/16/2023 CR XR DEXA BONE DENSITY W/WO STORMY from 11/15/2024 CR XR LUMBAR SPINE COMPLETE from 08/13/2025 FINDING: PELVIS: OSSEOUS: No pelvic nor hip fractures evident.No significant osseous lesions evident.The sacroiliac joints appear age-appropriate. There are no sacral fractures evident. No coccyx fracture. There is multilevel disc space narrowing. There is 1 cm anterior listhesis L5 upon S1 again noted, related to facet arthropathy. There are no obvious pars defects. There is significant bilateral foraminal stenosis at L5-S1 level due to the disc height loss and listhesis with significant impingement of the exiting nerve roots bilaterally at this level between the overlying L5 pedicles and the subjacent annulus. There is severe central spinal canal stenosis also evident at this level as well as at the L4-5 level. ANTERIOR ABDOMINAL WALL/GI:There is a small fat only containing umbilical hernia. No inguinal hernias evident.No obvious bowel obstruction. No evidence of appendicitis.Extensive sigmoid diverticulosis.No free fluid in the pelvis. LYMPH NODES: There is no intrapelvic nor inguinal adenopathy. URINARY BLADDER: No calculi nor obvious masses evident REPRODUCTIVE: Uterus and adnexal regions appear [id number].. IMPRESSION: 1. No acute osseous findings. No evidence of pelvic nor sacral fractures. No hip fractures. No acute findings in the sacroiliac joints which appear age- appropriate. No coccyx fracture. 2. There is 1 cm anterior listhesis of L5 upon S1 again noted, seen on prior studies. This is related to facet arthrosis (there are no pars defects). There is severe central spinal canal stenosis at this level and there is also significant bilateral foraminal stenosis at L5-S1 level. Also central canal stenosis evident at L4-5 level. 3. Extensive sigmoid diverticulosis without evidence of acute diverticulitis. Also no appendicitis. Uterus and adnexal regions appear unremarkable. RADIATION DOSE DELIVERED: 359.31mGy.cm Total DLP DATA REPOSITORY: All CT scans at this facility are submitted to the National Radiology Data Registry (NRDR) Dose Index Registry (DIR) with the [employer] (ACR). RADIATION OPTIMIZATION: All CT scans at this facility use at least one of these dose optimization techniques: automated exposure control; mA and/or kV adjustment per patient size (includes targeted exams where dose is matched to clinical indication); or iterative reconstruction.
== END ==
LOC: DI 03:45
PROVIDERS: PCP Nurse Practitioner Family; Visit Provider Family Medicine
DX: M53.3 Sacrococcygeal disorders, not elsewhere classified (principal); K57.30 Diverticulosis of large intestine without perforation or abscess without bleeding
CPT/HCPCS: 72192